=== PATIENT | male | born 1980 | race Caucasian/White ===

== ENCOUNTER 2023-03-29 13:25 | Emergency (ER) | payer SELFPAY ==
[2023-03-29] MEDS ORDERED: NA CHLORIDE 0.9% 1,000 ML ONE (13:51)
[2023-03-29 14:02] LABS: Absolute Lymphocytes (CBC) 2.6 K/uL (0.7-4.9); Hematocrit 49.8 % (39.6-49.0); Lymphocytes % 30.5 % (15.3-44.8); MCV 90.6 fL (80-100); MPV 8.2 fL (7.6-11.3); Platelets 217 thou/uL (152-406); RBC Red Blood Cell Count 5.49 M/uL (4.33-5.43)
--- NOTE | 2023-03-29 15:18 | ER ---
Nurse's Notes [facility] Name: Al Shelton Age: 42 yrs Sex: Male : 1980 Arrival Date: 03/29/2023 Time: 13:25 Bed 15 Private MD: Diagnosis: Hyperglycemia, unspecified;Dehydration Presentation: 03/29 13:39 Chief complaint: Patient states: Pt reports he went to a physical for work today and ss was told that his blood sugar was 412. Pt has no complaints other than fatigue for some time. 13:39 Coronavirus screen: Client denies travel out of the [place] in the last 14 days. Ebola ss Screen: Patient denies exposure to infectious person. Patient denies travel to an Ebola-affected area in the 21 days before illness onset. Initial Sepsis Screen: Does the patient meet any 2 criteria? No. Patient's initial sepsis screen is negative. Does the patient have a suspected source of infection? No. Patient's initial sepsis screen is negative. Risk Assessment: Do you want to hurt yourself or someone else? Patient reports no desire to harm self or others. Onset of symptoms is unknown. 13:39 Method Of Arrival: Ambulatory ss 13:39 Acuity: CARIDAD 3 ss Triage Assessment: 13:45 General: Appears in no apparent distress. comfortable, Behavior is calm, cooperative. ml4 Pain: Denies pain. EENT: No deficits noted. Neuro: No deficits noted. 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 Speech is normal. Cardiovascular: No deficits noted. Capillary refill < 3 seconds. Respiratory: No deficits noted. Airway is patent Respiratory effort is even, unlabored, Respiratory pattern is regular, symmetrical. GI: No deficits noted. Patient currently denies abdominal pain. : No deficits noted. Denies urinary frequency. Derm: No deficits noted. Skin is intact, Skin is dry, Skin is Skin temperature is warm. Historical: - Allergies: 13:47 No Known Allergies; ss - Home Meds: 13:47 None [Active]; ss - PMHx: 13:47 Hypertensive disorder; ss - PSHx: 13:47 Pacemaker; ss - Immunization history:: Client reports receiving the 2nd dose of the Covid vaccine. - Social history:: Smoking status: Patient denies any tobacco usage or history of. - Family history:: not pertinent. - Hospitalizations: : No recent hospitalization is reported. Screenin:47 [facility] ED Fall Risk Assessment (Adult) History of falling in the last 3 months, ml4 including since admission No falls in past 3 months (0 pts) Confusion or Disorientation No (0 pts) Intoxicated or Sedated No (0 pts) Impaired Gait No (0 pts) Mobility Assist Device Used No (0 pt) Altered Elimination No (0 pt) Score/Fall Risk Level 0 - 2 = Low Risk. Abuse screen: Denies threats or abuse. Nutritional screening: No deficits noted. Tuberculosis screening: No symptoms or risk factors identified. Assessment: 13:46 Reassessment: Patient appears in no apparent distress at this time. No changes from ml4 previously documented assessment. Vital Signs: 13:39 BP 138 / 90; Pulse 74; Resp 16; Temp 97.7(TE); Pulse Ox 99% on R/A; Weight 120.2 kg; ss Height 6 ft. 3 in. ; Pain 0/10; 13:46 BP 138 / 90; Pulse 77; Resp 18; Pulse Ox 100% on R/A; Weight 120.2 kg; Height 6 ft. 3 ml4 in. ; Pain 0/10; 13:46 Body Mass Index 33.12 (120.20 kg, 190.5 cm) ml4 13:39 Pain Scale: Adult ss 13:46 Pain Scale: Adult ml4 Milligan Coma Score: 13:46 Eye Response: spontaneous(4). Motor Response: obeys commands(6). Verbal Response: ml4 oriented(5). Total: 15. ED Course: 13:28 Patient arrived in ED. im 13:30 Jeromy Johnson MD is Attending Physician. rn 13:39 BARBIE FariasIII, Giovanny, RN is Primary Nurse. ml4 13:46 Arm band placed on right wrist. ml4 13:47 Triage completed. ss 13:48 No apparent distress. Awaiting lab results. ml4 13:48 No provider procedures requiring assistance completed. Inserted saline lock: 22 gauge ml4 in right hand, using aseptic technique. 15:17 Mitchell Wells MD is Referral Physician. rn 15:38 Patient has correct armband on for positive identification. Provided Education on: N/A. ml4 15:38 IV discontinued, intact, No redness/swelling at site. Pressure dressing applied. ml4 Administered Medications: 13:51 Drug: NS 0.9% IV 1000 ml Route: IV; Rate: 1000 ml; Site: right hand; ml4 Medication: 13:46 VIS not applicable for this client. ml4 Outcome: 13:48 Condition: good ml4 15:17 Discharge ordered by . rn 15:38 Discharged to home ambulatory, with family. ml4 15:38 Discharge instructions given to patient, family, Instructed on discharge instructions, follow up and referral plans. Demonstrated understanding of instructions, follow-up care. 15:50 Patient left the ED. ml4 Signatures: Jeromy Johnson MD MD rn Blanchard, Shelby, RN RN Yanet Kovacs, RNIII, Giovanny, RN RN ml4 Corrections: (The following items were deleted from the chart) 13:47 13:39 Chief complaint: Patient states: Pt reports he went to a physical for work today ss and was told that his blood sugar was 412. Pt has not complaints other than fatigue for some time ss
--- NOTE | 2023-03-29 15:18 | EDPHYS ---
Physician Documentation [facility] Name: Al Shelton Age: 42 yrs Sex: Male : 1980 Arrival Date: 03/29/2023 Time: 13:25 Bed 15 Private MD: ED Physician Jeromy Johnson HPI: 03/29 13:39 This 42 yrs old Male presents to ER via Unassigned with complaints of High Blood Sugar. rn 13:39 The patient or guardian reports hyperglycemia, that was potentially precipitated by no rn particular event. Onset: The symptoms/episode began/occurred at an unknown time. Current symptoms: In the emergency department the patient's symptoms are unchanged from the initial presentation. The patient has not experienced similar symptoms in the past. The patient has not recently seen a physician. Pt reports just had work physical and told "high blood sugar". Read greater than 400 but states just had 20 oz soda and food because he didn't know about blood testing. Reports generalized fatigue, but no fever/vomiting/diarrhea. Has famhx of diabetes but he has never been diagnosed with diabetes. . Historical: - Allergies: 13:47 No Known Allergies; ss - Home Meds: 13:47 None [Active]; ss - PMHx: 13:47 Hypertensive disorder; ss - PSHx: 13:47 Pacemaker; ss - Immunization history:: Client reports receiving the 2nd dose of the Covid vaccine. - Social history:: Smoking status: Patient denies any tobacco usage or history of. - Family history:: not pertinent. - Hospitalizations: : No recent hospitalization is reported. ROS: 13:39 Constitutional: Negative for fever, chills, and weight loss, Neck: Negative for injury, rn pain, and swelling, Cardiovascular: Negative for chest pain, palpitations, and edema, Respiratory: Negative for shortness of breath, cough, wheezing, and pleuritic chest pain, Abdomen/GI: Negative for abdominal pain, nausea, vomiting, diarrhea, and constipation, Back: Negative for injury and pain, : Negative for injury, bleeding, discharge, and swelling, MS/Extremity: Negative for injury and deformity, Skin: Negative for injury, rash, and discoloration, Neuro: Negative for headache, weakness, numbness, tingling, and seizure. Exam: 13:39 Constitutional: This is a well developed, well nourished patient who is awake, alert, rn and in no acute distress. Head/Face: Normocephalic, atraumatic. ENT: dry MM Cardiovascular: Regular rate and rhythm. No pulse deficits. Respiratory: No increased work of breathing, no retractions or nasal flaring. Abdomen/GI: Soft, non-tender Skin: Warm, dry MS/ Extremity: Pulses equal, no cyanosis. Neuro: Awake and alert, GCS 15 Vital Signs: 13:39 BP 138 / 90; Pulse 74; Resp 16; Temp 97.7(TE); Pulse Ox 99% on R/A; Weight 120.2 kg; ss Height 6 ft. 3 in. ; Pain 0/10; 13:46 BP 138 / 90; Pulse 77; Resp 18; Pulse Ox 100% on R/A; Weight 120.2 kg; Height 6 ft. 3 ml4 in. ; Pain 0/10; 13:46 Body Mass Index 33.12 (120.20 kg, 190.5 cm) ml4 13:39 Pain Scale: Adult ss 13:46 Pain Scale: Adult ml4 Rudyard Coma Score: 13:46 Eye Response: spontaneous(4). Motor Response: obeys commands(6). Verbal Response: ml4 oriented(5). Total: 15. MDM: 13:30 Patient medically screened. rn 15:13 Differential diagnosis: diabetes insipidus, hyperglycemia. Data reviewed: vital signs, rn nurses notes, lab test result(s), EKG, and as a result, I will discharge patient. Counseling: I had a detailed discussion with the patient and/or guardian regarding the historical points, exam findings, and any diagnostic results supporting the discharge/admit diagnosis, lab results, the need for outpatient follow up, to return to the emergency department if symptoms worsen or persist or if there are any questions or concerns that arise at home. Response to treatment: the patient's symptoms have markedly improved after treatment, and as a result, I will discharge patient. Special discussion: I discussed with the patient/guardian in detail that at this point there is no indication for admission to the hospital. It is understood, however, that if the symptoms persist or worsen the patient needs to return immediately for re-evaluation. Based on the history and exam findings, there is no indication for further emergent testing or inpatient evaluation. I discussed with the patient/guardian the need to see the escrow secretary for further evaluation of the symptoms. I discussed with the patient/guardian the need to see the primary care provider for further evaluation of the symptoms. ED course: Pt with improving glucose, no formal diagnosis of diabetes, will f/u with pcp for further fasting tests and further management. Also recommend cardiology f/u for pacemaker evaluation, but denies any active chest pain/sob/syncope/dizziness. Has hx of ablation for wpw and states last evaluation of pacemaker was 4 years ago. Return precautions given and understood. . 03/29 13:38 Order name: CBC with Diff; Complete Time: 14:09 rn 03/29 13:38 Order name: Basic Metabolic Panel; Complete Time: 14:41 rn 03/29 13:39 Order name: EKG; Complete Time: 13:39 rn 03/29 13:38 Order name: IV Start; Complete Time: 13:51 rn 03/29 13:39 Order name: EKG - Nurse/Tech; Complete Time: 13:56 rn Administered Medications: 13:51 Drug: NS 0.9% IV 1000 ml Route: IV; Rate: 1000 ml; Site: right hand; ml4 Disposition Summary: 03/29/23 15:17 Discharge Ordered Location: Home rn Problem: new rn Symptoms: have improved rn Condition: Stable rn Diagnosis - Hyperglycemia, unspecified rn - Dehydration rn Followup: rn - With: Mitchell Wells MD - When: As needed - Reason: Recheck today's complaints, Re-evaluation by your physician Discharge Instructions: - Discharge Summary Sheet rn - Dehydration, Adult rn - Hyperglycemia rn - Form - Return To Work ml4 Forms: - Medication Reconciliation Form rn - Thank You Letter rn - Antibiotic furnace firer - Prescription Opioid Use rn - Patient Portal Instructions rn - Leadership Thank You Letter rn Signatures: Dispatcher [employer] Jreomy Sin MD MD rn Blanchard, Shelby, RN RN ss Lembo, RNIII, BARBIE Baltazar RN ml4
[2023-03-29 16:15] VITALS: BP 138/90; TEMP 97.7
[2023-03-29 16:17] VITALS: O2SAT 100
--- NOTE | 2023-04-01 18:07 | EKG ---
Test Date: 2023-03-29 Test Time: 14:01:37 Sink Maker: BCW MEASUREMENT RESULTS: Intervals: Rate: 107 MN: QRSD: 206 QT: 270 QTc: 360 [place]: P: MN: QRS: 25 T: 0 INTERPRETIVE STATEMENTS: V Paced. Electronically Signed On 04-01-23 17:59:51 CDT by Mitchell Wells
== END 2023-03-29 15:50 | disposition home or self-care (01) ==
LOC: ER 13:25
DX: R73.9 Hyperglycemia, unspecified (principal); E86.0 Dehydration
CPT/HCPCS: 36415; 80048; 82947; 85025; 93005; 99284; J7030

== ENCOUNTER → 2023-08-28 | Emergency (ER) | payer SELFPAY ==
--- NOTE | 2023-08-29 01:01 | ER ---
Nurse's Notes [facility] Name: Al Shelton Age: 42 yrs Sex: Male : 1980 Arrival Date: 08/28/2023 Time: 22:39 Bed 8 Private MD: Diagnosis: Local infection of the skin and subcutaneous tissue, unspecified;Pain in left ankle and joints of left foot Presentation: 08/28 23:01 Chief complaint: Patient states: left ankle pain that radiates up seg[place]ia starting 1 week km8 ago after hitting leg on a shopping cart; pt able to walk. Coronavirus screen: Client denies travel out of the [place] in the last 14 days. Ebola Screen: No symptoms or risks identified at this time. Initial Sepsis Screen: Does the patient meet any 2 criteria? HR > 90 bpm. No. Patient's initial sepsis screen is negative. Does the patient have a suspected source of infection? Yes: Skin breakdown/wound. Risk Assessment: Do you want to hurt yourself or someone else? Patient reports no desire to harm self or others. Onset of symptoms was August 21, 2023. 23:01 Method Of Arrival: Ambulatory km8 23:01 Acuity: CARIDAD 3 km8 Triage Assessment: 23:01 General: Appears in no apparent distress. uncomfortable, Behavior is calm, cooperative, km8 appropriate for age. Pain: Complains of pain in left leg Pain currently is 10 out of 10 on a pain scale. EENT: No signs and/or symptoms were reported regarding the EENT system. Neuro: Level of Consciousness is awake, alert, obeys commands, Oriented to person, place, time, situation. Cardiovascular: Denies chest pain, shortness of breath, Capillary refill < 3 seconds Patient's skin is warm and dry. Respiratory: Airway is patent Respiratory effort is even, unlabored, Respiratory pattern is regular, symmetrical. GI: No signs and/or symptoms were reported involving the gastrointestinal system. : No signs and/or symptoms were reported regarding the genitourinary system. Derm: Skin is healthy with good turgor, Skin is dry, Skin is red, Skin temperature is warm. Musculoskeletal: Circulation, motion, and sensation intact. Range of motion: intact in all extremities, Swelling present in left leg. Historical: - Allergies: 23:04 No Known Allergies; km8 - Home Meds: 23:04 None [Active]; km8 - PMHx: 23:04 Hypertensive disorder; 8 - PSHx: 23:04 pacemaker; 8 - Immunization history:: Client reports having NOT received the Covid vaccine. Flu vaccine is not up to date. - Social history:: Smoking status: Patient/guardian denies using tobacco, the patient reports quitting approximately 4 years ago, Patient uses alcohol, but reports only rare drinking. Patient/guardian denies using street drugs. Screenin/18 01:07 [facility] ED Fall Risk Assessment (Adult) History of falling in the last 3 months, jb4 including since admission No falls in past 3 months (0 pts) Confusion or Disorientation No (0 pts). Abuse screen: Denies threats or abuse. Nutritional screening: No deficits noted. Tuberculosis screening: No symptoms or risk factors identified. Assessment: 00:34 Reassessment: Patient appears in no apparent distress at this time. Patient and/or jb4 family updated on plan of care and expected duration. Pain level reassessed. Patient is alert, oriented x 3, equal unlabored respirations, skin warm/dry/pink. Vital Signs: 08/28 23:01 BP 161 / 93; Pulse 118; Resp 16; Temp 98(O); Pulse Ox 99% on R/A; Weight 121.56 kg (R); [facility] Height 6 ft. 3 in. (R); Pain 10/; 08/29 00:34 BP 143 / 76; Pulse 102; Resp 16; Pulse Ox 95% on R/A; jb4 08/28 23:01 Body Mass Index 33.50 (121.56 kg, 190.5 cm) [facility] 08/28 23:01 Pain Scale: Adult [facility] ED Course: 08/28 22:54 Patient arrived in ED. gm2 22:55 Ronda Nails FNP-C [facility] kb 22:55 Etienne Ventura MD is Attending Physician. kb 23:01 Arm band placed on right wrist. 8 23:03 Triage completed. km8 23:32 Tib Fib Left XRAY In Process Unspecified. EDMS 23:32 Foot Left 2 View XRAY In Process Unspecified. EDMS 23:47 US Extremity Venous Unilateral Ltd In Process Unspecified. EDMS 08/29 01:07 Patient has correct armband on for positive identification. Bed in low position. Call jb4 light in reach. Side rails up X 1. 01:07 No provider procedures requiring assistance completed. Patient did not have IV access jb4 during this emergency room visit. Administered Medications: No medications were administered Outcome: 01:00 Discharge ordered by . azael 01:07 Discharged to home ambulatory, jb4 01:07 Condition: stable 01:07 Discharge instructions given to patient, Instructed on discharge instructions, follow up and referral plans. no drinking with medication, medication usage, Demonstrated understanding of instructions, follow-up care, medications, Prescriptions given X 2, 01:08 Patient left the ED. jb4 Signatures: Dispatcher [employer] EDMS Ronda Nails, RHODAC ORTHOTIST OR PROSTHETIST-Aleksandar Zepeda, RN RN jb4 Maeve Holgiun [facility] Lety Corbin, BARBIE RN km8 Corrections: (The following items were deleted from the chart) 08/28 23:07 23:01 BP 161 / 93; Pulse 118bpm; Resp 16bpm; Pulse Ox 99% RA; 121.56 kg Reported; km8 Height 6 ft. 3 in. Reported; BMI: 33.5; Pain 10/10, Adult; km8
--- NOTE | 2023-08-29 01:01 | EDPHYS ---
Physician Documentation [facility] Name: Al Shelton Age: 42 yrs Sex: Male : 1980 Arrival Date: 08/28/2023 Time: 22:39 Bed 8 Private MD: ED Physician Etienne Ventura HPI: 08/29 00:52 This 42 yrs old Male presents to ER via Ambulatory with complaints of Ankle Injury, kb Ankle Swelling. 00:52 Patient is a 42-year-old male with a history of hypertension who presents for pain and kb swelling to left ankle that radiates up left seg[place]ia. Denies injury or trauma. Denies fever.. Historical: - Allergies: 08/28 23:04 No Known Allergies; km8 - Home Meds: 23:04 None [Active]; km8 - PMHx: 23:04 Hypertensive disorder; km8 - PSHx: 23:04 pacemaker; km8 - Immunization history:: Client reports having NOT received the Covid vaccine. Flu vaccine is not up to date. - Social history:: Smoking status: Patient/guardian denies using tobacco, the patient reports quitting approximately 4 years ago, Patient uses alcohol, but reports only rare drinking. Patient/guardian denies using street drugs. ROS: 08/29 00:52 Constitutional: Negative for fever, chills, and weight loss, kb MS/extremity: Positive for pain, swelling, tenderness, of the left [place], anterior aspect of left ankle and dorsum of left foot, All other systems are negative, Exam: 00:59 Constitutional: This is a well developed, well nourished patient who is awake, alert, kb and in no acute distress. Head/Face: Normocephalic, atraumatic. ENT: Moist Mucous membranes Cardiovascular: Regular rate Respiratory: Respirations even and unlabored. No increased work of breathing. Talking in full sentences Skin: Warm, dry with normal turgor. Normal color. Neuro: Awake and alert, GCS 15, oriented to person, place, time, and situation. Moves all extremities. Normal gait. 00:59 Musculoskeletal/extremity: Extremities: grossly normal except: noted in the dorsum of left foot and anterior aspect of left ankle: abrasion, pain, swelling, tenderness, slight erythema, ROM: no acute changes, intact in all extremities, Circulation is intact in all extremities. Sensation intact. Weight bearing: able to fully bear weight, Vital Signs: 08/28 23:01 BP 161 / 93; Pulse 118; Resp 16; Temp 98(O); Pulse Ox 99% on R/A; Weight 121.56 kg (R); km8 Height 6 ft. 3 in. (R); Pain 10/10; 08/29 00:34 BP 143 / 76; Pulse 102; Resp 16; Pulse Ox 95% on R/A; jb4 08/28 23:01 Body Mass Index 33.50 (121.56 kg, 190.5 cm) [facility] 08/28 23:01 Pain Scale: Adult [facility] MDM: 08/28 22:56 Patient medically screened. kb 08/29 01:00 Differential diagnosis: fracture, sprain, cellulitis, dvt. Data reviewed: vital signs, kb nurses notes. Counseling: I had a detailed discussion with the patient and/or guardian regarding the historical points, exam findings, and any diagnostic results supporting the discharge/admit diagnosis, radiology results, the need for outpatient follow up, a family practitioner, to return to the emergency department if symptoms worsen or persist or if there are any questions or concerns that arise at home. 08/28 23:07 Order name: US Extremity Venous Unilateral Ltd kb 08/28 23:07 Order name: Tib Fib Left XRAY kb 08/28 23:07 Order name: Foot Left 2 View XRAY kb Administered Medications: No medications were administered Disposition Summary: 08/29/23 01:00 Discharge Ordered Notes: Location: Home kb Condition: Stable kb Diagnosis - Local infection of the skin and subcutaneous tissue, unspecified kb - Pain in left ankle and joints of left foot kb Followup: kb - With: Emergency Department - When: As needed - Reason: Worsening of condition Followup: kb - With: Private Physician - When: 2 - 3 days - Reason: Recheck today's complaints, Continuance of care, Re-evaluation by your physician Discharge Instructions: - Discharge Summary Sheet kb - Musculoskeletal Pain kb - Wound Infection, [id number] kb Forms: - Medication Reconciliation Form kb - Thank You Letter kb - Antibiotic Education kb - Prescription Opioid Use kb - Patient Portal Instructions kb - Leadership Thank You Letter kb Prescriptions: - Cephalexin 500 mg Oral Capsule - take 1 capsule ORAL route every 8 hours for 10 days; 30 capsule; Refills: 0, kb Product Selection Permitted - Diclofenac Sodium 75 mg Oral tablet, delayed release (enteric coated) - take 1 tablet ORAL route 2 times per day As needed; 30 tablet; Refills: 0, kb Product Selection Permitted Signatures: Dispatcher [employer] Ronda Chinchilla, DEE-C DEE-Lety Dixon, RN RN km8
[2023-08-29 06:50] VITALS: BP 143/76; TEMP 98; O2SAT 95
--- NOTE | 2023-08-29 15:11 | RAD REPORT ---
EXAM DESCRIPTION: RAD - Tib Fib Left - 08/28/2023 11:30 pm CLINICAL HISTORY: PAIN COMPARISON: None. TECHNIQUE: XR TIBIA FIBULA LEFT 08/28/2023 11:07 PM BLIND SLAT STAPLING MACHINE OPERATOR FINDINGS: There is no fracture. Joint spaces are preserved. There is mild soft tissue swelling ove rlying the anterior ankle. IMPRESSION: No acute osseous findings. Electronically signed by: Chuy Acosta MD 08/28/2023 11:44 PM BLIND SLAT STAPLING MACHINE OPERATOR Due to temporary technical issues with the PACS/Fluency reporting system, reports are being signed by the in house radiologist without review as a courtesy to ensure prompt reporting. The interpreting r adiologist is fully responsible for the content of the report.
--- NOTE | 2023-08-29 15:28 | RAD REPORT ---
EXAM DESCRIPTION: US - Extremity Venous Uni Ltd - 08/28/2023 11:45 pm CLINICAL HISTORY: PAIN TECHNIQUE: Real-time Duplex ultrasound of the left lower extremity veins with 2-D kaufman scale, color Doppler flow, and spectral waveform analysis. COMPARISON: None available for comparison. FINDINGS: Left deep veins: The common femoral, femoral, popliteal and visualized calf veins are aguilar nt without thrombus. Normal compressibility, augmentation response, and Doppler waveforms. Left superficial veins: Visualized saphenofemoral junction is patent without thrombus. IMPRESSION: No evidence of venous thrombosis in the left lower extremity. Electronically signed by: Vincent Núñez MD 08/28/2023 11:55 PM BAKELITE MOLDER Due to temporary technical issues with the PACS/Fluency reporting system, reports are being signed by the in house radiologist without review as a courtesy to ensure prompt reporting. The interpreting r adiologist is fully responsible for the content of the report.
--- NOTE | 2023-08-29 15:37 | RAD REPORT ---
EXAM DESCRIPTION: RAD - Foot Left 2 View - 08/28/2023 11:31 pm CLINICAL HISTORY: PAIN COMPARISON: None. TECHNIQUE: XR FOOT 1-2 VIEWS LEFT 08/28/2023 11:07 PM OPERATIONS SPECIALIST FINDINGS: There is no fracture. Joint spaces are preserved. Soft tissues are unremarkable. IMPRESSION: No acute osseous findings. Electronically signed by: Chuy Acosta MD 08/28/2023 11:42 PM OPERATIONS SPECIALIST Due to temporary technical issues with the PACS/Fluency reporting system, reports are being signed by the in house radiologist without review as a courtesy to ensure prompt reporting. The interpreting r adiologist is fully responsible for the content of the report.
== END ==
LOC: ER 22:39
DX: L08.9 Local infection of the skin and subcutaneous tissue, unspecified (principal)
CPT/HCPCS: 93971

== ENCOUNTER → 2023-08-30 | Emergency (ER) | payer SELFPAY ==
[~2023-08-30] MED LIST: KETOROLAC 30 MG/ML INJ ONE
--- NOTE | 2023-08-30 19:08 | ER ---
Nurse's Notes [facility] Name: Al Shelton Age: 42 yrs Sex: Male : 1980 Arrival Date: 08/30/2023 Time: 17:46 Bed IW10 Private MD: Diagnosis: Cellulitis of left lower limb Presentation: 08/30 18:39 Chief complaint: Patient states: Pt requesting that someone change his pain medication ap3 for a swollen ankle. US and xray done Wed in this ER. Wants better pain medication. Coronavirus screen: Vaccine status: Patient reports being unvaccinated. Client denies travel out of the [place] in the last 14 days. Ebola Screen: Patient negative for fever greater than or equal to 101.5 degrees Fahrenheit, and additional compatible Ebola Virus Disease symptoms Patient denies exposure to infectious person. Patient denies travel to an Ebola-affected area in the 21 days before illness onset. Initial Sepsis Screen: Does the patient meet any 2 criteria? No. Patient's initial sepsis screen is negative. Does the patient have a suspected source of infection? No. Patient's initial sepsis screen is negative. Risk Assessment: Do you want to hurt yourself or someone else? Patient reports no desire to harm self or others. Onset of symptoms is unknown. 18:39 Method Of Arrival: Ambulatory ap3 18:39 Acuity: CARIDAD 5 ap3 Triage Assessment: 18:43 General: Appears in no apparent distress. Behavior is calm, cooperative. Pain: ap3 Complains of pain in left lateral ankle and left medial ankle. Historical: - Allergies: 18:43 No Known Allergies; ap3 - Home Meds: 18:43 None [Active]; ap3 - PMHx: 18:43 Hypertensive disorder; ap3 - PSHx: 18:43 pacemaker; ap3 - Immunization history:: Adult Immunizations up to date, Client reports having NOT received the Covid vaccine. Last tetanus immunization: up to date. - Social history:: Smoking status: Patient denies any tobacco usage or history of. unknown. Screenin:46 [facility] ED Fall Risk Assessment (Adult) History of falling in the last 3 months, cp4 including since admission No falls in past 3 months (0 pts) Confusion or Disorientation No (0 pts) Intoxicated or Sedated No (0 pts) Impaired Gait No (0 pts) Mobility Assist Device Used No (0 pt) Altered Elimination No (0 pt) Score/Fall Risk Level 0 - 2 = Low Risk Oriented to surroundings, Maintained a safe environment, Educated pt \T\ family on fall prevention, incl call for assistance when getting out of bed, Assessed \T\ reinforced patient's understanding of fall precautions, Provided non-skid footwear, Hourly rounding (assess needs \T\ fall precautionary measures) done. Abuse screen: Denies threats or abuse. Nutritional screening: No deficits noted. Tuberculosis screening: No symptoms or risk factors identified. Vital Signs: 18:39 BP 127 / 85; Pulse 98; Resp 20; Temp 98; Pulse Ox 100% ; Weight 121.34 kg; Height 6 ft. ap3 3 in. ; 18:39 Body Mass Index 33.43 (121.34 kg, 190.5 cm) ap3 ED Course: 17:55 Patient arrived in ED. mg5 18:03 [facility] cp 18:03 Etienne Ventura MD is Attending Physician. cp 18:43 Triage completed. ap3 18:43 Arm band placed on right wrist. ap3 19:46 Fall risk band placed. Provided Education on: cellulitis. cp4 19:46 No provider procedures requiring assistance completed. Patient did not have IV access cp4 during this emergency room visit. Administered Medications: 19:12 Drug: Ketorolac IM 30 mg IM once Route: IM; Site: right deltoid; ap3 19:32 Follow up: Response: No adverse reaction cp4 Medication: 19:46 VIS not applicable for this client. cp4 Outcome: 19:07 Discharge ordered by . cp 19:46 Discharged to home ambulatory, cp4 19:46 Condition: stable 19:46 Discharge instructions given to patient, Instructed on discharge instructions, follow up and referral plans. medication usage, Demonstrated understanding of instructions, follow-up care, medications, Prescriptions given X 2, 19:50 Patient left the ED. cp4 Signatures: Rich Barbour PA PA cp Prokisch, Amanda, RN RN ap3 Megan Sorensen mg5 Armida Sharp cp4
--- NOTE | 2023-08-30 19:08 | EDPHYS ---
Physician Documentation [facility] Name: Al Shelton Age: 42 yrs Sex: Male : 1980 Arrival Date: 08/30/2023 Time: 17:46 Bed IW10 Private MD: ED Physician Etienne Ventura HPI: 08/30 19:00 This 42 yrs old Male presents to ER via Ambulatory with complaints of Leg Pain. cp 19:00 The patient presents with pain, that is acute. The complaints affect the left lower leg cp and left ankle. 19:00 Patient returns to Ed after being seen 2 days ago for left ankle pain and swelling. cp Reports increased swelling and pain today. Xrays and US performed at previous visit negative. Reports prescribed diclofenac not helping with pain. Historical: - Allergies: 18:43 No Known Allergies; ap3 - Home Meds: 18:43 None [Active]; ap3 - PMHx: 18:43 Hypertensive disorder; ap3 - PSHx: 18:43 pacemaker; ap3 - Immunization history:: Adult Immunizations up to date, Client reports having NOT received the Covid vaccine. Last tetanus immunization: up to date. - Social history:: Smoking status: Patient denies any tobacco usage or history of. unknown. ROS: 19:05 Constitutional: Negative for body aches, chills, fever, poor PO intake, cp 19:05 Eyes: Negative for injury, pain, redness, and discharge, cp 19:05 Cardiovascular: Negative for chest pain, palpitations, 19:05 Respiratory: Negative for cough, shortness of breath, wheezing, 19:05 Abdomen/GI: Negative for abdominal pain, nausea, vomiting, and diarrhea, 19:05 Back: Negative for pain at rest, pain with movement, 19:05 MS/extremity: Positive for pain, swelling, tenderness, of the left lower leg and left ankle, 19:05 All other systems are negative, Exam: 19:06 Head/Face: Normocephalic, atraumatic. cp 19:06 Constitutional: The patient appears in no acute distress, alert, awake, non-toxic, well developed, well nourished, 19:06 Cardiovascular: Rate: normal, 19:06 Respiratory: the patient does not display signs of respiratory distress, Respirations: normal, no use of accessory muscles, no retractions, labored breathing, is not present, 19:06 Musculoskeletal/extremity: Extremities: grossly normal except: noted in the left lower leg: superficial wound to anterior aspect of lower leg with erythema, mild swelling noted extending to ankle, Perfusion: the extremity is normally perfused throughout, Sensation intact. 19:06 Skin: cellulitis, that is mild, irregular, on the left lower leg, cp Vital Signs: 18:39 BP 127 / 85; Pulse 98; Resp 20; Temp 98; Pulse Ox 100% ; Weight 121.34 kg; Height 6 ft. ap3 3 in. ; 18:39 Body Mass Index 33.43 (121.34 kg, 190.5 cm) ap3 MDM: 18:50 Patient medically screened. cp 19:07 Data reviewed: vital signs, nurses notes, old medical records, xray and US reports from cp previous visit and as a result, I will discharge patient. 19:07 Differential diagnosis: closed fracture, cellulitis, abscess, dependent edema. I cp considered the following discharge prescriptions or medication management in the emergency department Medications were administered in the Emergency Department. See MAR. Counseling: I had a detailed discussion with the patient and/or guardian regarding the historical points, exam findings, and any diagnostic results supporting the discharge/admit diagnosis, the need for outpatient follow up, a family practitioner, to return to the emergency department if symptoms worsen or persist or if there are any questions or concerns that arise at home. Response to treatment: the patient's symptoms have mildly improved after treatment, and as a result, I will discharge patient. Administered Medications: 19:12 Drug: Ketorolac IM 30 mg IM once Route: IM; Site: right deltoid; ap3 19:32 Follow up: Response: No adverse reaction cp4 Disposition Summary: 08/30/23 19:07 Discharge Ordered Notes: Location: Home cp Problem: an ongoing problem cp Symptoms: have worsened cp Condition: Stable cp Diagnosis - Cellulitis of left lower limb cp Followup: cp - With: Private Physician - When: 2 - 3 days - Reason: Worsening of condition Discharge Instructions: - Discharge Summary Sheet cp - Cellulitis, Adult cp - Form - Excuse from Work, School, or Physical Activity cp Forms: - Medication Reconciliation Form cp - Thank You Letter cp - Antibiotic Education cp - Prescription Opioid Use cp - Patient Portal Instructions cp - Leadership Thank You Letter cp Prescriptions: - Bactrim DS 800-160 mg Oral Tablet - take 1 tablet ORAL route every 12 hours for 10 days; 20 tablet; Refills: 0, cp Product Selection Permitted - methocarbamol 750 mg Oral tablet - take 1 tablet ORAL route 3 times per day; 20 tablet; Refills: 0, Product cp Selection Permitted Addendum: 09/02/2023 10:53 I was immediately available for consultation during this patient's visit. I did not e c2 personally see the patient or discuss the patient with the DIMITRI. . Signatures: Rich Barbour PA PA cp Prokisch, Amanda, RN RN ap3 Etienne Ventura MD MD ec2 Armida Sharp cp4
[2023-08-30 23:17] VITALS: BP 127/85; TEMP 98; O2SAT 100
== END ==
LOC: ER 17:46
DX: L03.116 Cellulitis of left lower limb (principal); I10 Essential (primary) hypertension; Z95.0 Presence of cardiac pacemaker
CPT/HCPCS: 96372; 99284

== ENCOUNTER → 2023-09-03 | Emergency (ER) | payer SELFPAY ==
[~2023-09-03] MED LIST changes: +ACETAMINOPHEN 325 MG TABLET PO PRN; +CEFEPIME 2 GM in NA CHLORIDE 0.9% 100 ML IV SCH; +ENOXAPARIN 40 MG/0.4 ML SQ SCH; +INSULIN GLARGINE 100 UNIT/ML SQ SCH; +INSULIN REGULAR (HUMAN) 100 UNIT/ML ONE; +INSULIN REGULAR (HUMAN) 100 UNIT/ML SQ SCH; +MORPHINE 4 MG/ML SYR ONE; +NA CHLORIDE 0.9% 1,000 ML IV SCH; +NA CHLORIDE 0.9% 1,000 ML ONE; +NA CHLORIDE 0.9% 100 ML ONE; +NA CHLORIDE 0.9% 250 ML ONE; +ONDANSETRON 4 MG/2 ML VIAL IV PRN; +ONDANSETRON 4 MG/2 ML VIAL ONE; +Oxycodone HCl/Acetaminophen 5/325 MG TAB PO PRN; +PIPERACIL/TAZO 3.375 GM VIAL IV ONE; +VANCOMYCIN 1 GM in NA CHLORIDE 0.9% 250 ML IVPB ONE; +VANCOMYCIN 1 GM in NA CHLORIDE 0.9% 250 ML IVPB SCH; +VANCOMYCIN 1 GM/VIAL ONE
--- NOTE | 2023-09-03 22:30 | RAD REPORT ---
EXAM DESCRIPTION: US - Extremity Venous Uni Ltd - 09/03/2023 10:21 pm CLINICAL HISTORY: left leg pain Leg swelling and edema. COMPARISON: Extremity Venous Uni Ltd dated 08/28/2023 FINDINGS: Left lower extremity venous system was interrogated with Doppler technique. Normal flow, c ompressibility and augmentation was noted. There is no DVT present.Complex collection left lateral ca lf area of pain is nonspecific. This could be a hematoma or related to muscle tearing. Nonemergent MR I followup would be suggested. IMPRESSION: No evidence of left lower extremity deep venous thrombosis.
[2023-09-03 22:59] LABS: Protime INR 1.41
[2023-09-03 23:01] LABS: Absolute Lymphocytes (CBC) 1.4 K/uL (0.7-4.9); Hematocrit 45.3 % (39.6-49.0); Lymphocytes % 12.5 % (15.3-44.8); MCV 90.2 fL (80-100); MPV 7.5 fL (7.6-11.3); Platelets 313 thou/uL (152-406); RBC Red Blood Cell Count 5.02 M/uL (4.33-5.43)
[2023-09-03 23:17] LABS: Albumin 2.7 g/dL (3.4-5.0); Bilirubin Direct 0.2 mg/dL (0-0.2); Bilirubin Indirect, Calculated 0.5 mg/dL (0.2-0.8); Bilirubin Total 0.7 mg/dL (0.2-1.0); Potassium 3.8 mEq/L (3.5-5.1); Protein, Total 7.8 g/dL (6.4-8.2)
--- NOTE | 2023-09-04 04:35 | EDPHYS ---
Physician Documentation [facility] Name: Al Shelton Age: 42 yrs Sex: Male : 1980 Arrival Date: 09/03/2023 Time: 21:36 Bed 20 Private MD: ED Physician Alonzo Ratliff HPI: 09/03 21:43 This 42 yrs old Male presents to ER via Unassigned with complaints of Leg sp4 Pain, Leg Swelling. 21:53 Prescriptions on 08/30/2023 - Bactrim DS 800-160 mg Oral Tablet take 1 tablet ORAL sp4 route every 12 hours for 10 days; 20 tablet; Refills: 0; Product Selection Permitted methocarbamol 750 mg Oral tablet take 1 tablet ORAL route 3 times per day; 20 tablet; Refills: 0; Product Selection Permitted . 09/04 02:10 42-year-old male comes in with left lower extremity pain starting on 08/27/2023 of this sp4 month. Patient states left lower extremity pain has intensified despite use of [id number] counter medications and prescribed p.o. antibiotics. Patient states pain is increasing and there is swelling left lateral lower extremity. . Historical: - Allergies: 09/03 21:48 NKDA; jj7 - PMHx: 21:48 Hypertensive disorder; jj7 - PSHx: 21:48 pacemaker; jj7 - Immunization history:: Client reports having NOT received the Covid vaccine. Flu vaccine is not up to date. - Social history:: Smoking status: Patient denies any tobacco usage or history of. Patient/guardian denies using alcohol, street drugs. - Family history:: not pertinent. ROS: 09/04 02:10 Constitutional: Negative for fever, chills, and weight loss, MS/Extremity: Positive sp4 left lower extremity pain and swelling All other systems are negative, Exam: 02:10 Constitutional: This is a well developed, well nourished patient who is awake, alert, sp4 and in no acute distress. Head/Face: Normocephalic, atraumatic. Eyes: Pupils equal round and reactive to light, extra-ocular motions intact. Lids and lashes normal. Conjunctiva and sclera are not injected. Cornea within normal limits. Periorbital areas with no swelling, redness, or edema. ENT: Nares patent. No nasal discharge, no septal abnormalities noted. Tympanic membranes are normal and external auditory canals are clear. Oropharynx with no redness, swelling, or masses, exudates, or evidence of obstruction, uvula midline. Mucous membranes moist. Neck: Trachea midline, no thyromegaly or masses palpated, and no cervical lymphadenopathy. Supple, full range of motion without nuchal rigidity, or vertebral point tenderness. Chest/axilla: Normal chest wall appearance and motion. Nontender with no deformity. No lesions are appreciated. Cardiovascular: Regular rate and rhythm with a normal S1 and S2. No gallops, murmurs, or rubs. Normal PMI, no JVD. No pulse deficits. Respiratory: Lungs have equal breath sounds bilaterally, clear to auscultation and percussion. No rales, rhonchi or wheezes noted. No increased work of breathing, no retractions or nasal flaring. Abdomen/GI: Soft, non-tender, with normal bowel sounds. No distension or tympany. No guarding or rebound. No evidence of tenderness throughout. Back: No spinal tenderness. No costovertebral tenderness. Skin: Warm, dry with normal turgor. Normal color with no rashes, no lesions, and no evidence of cellulitis. MS/ Extremity: Pulses equal, no cyanosis. Neurovascular intact. Full, normal range of motion. Left lateral lower extremity pain and swelling and tenderness. No sign of significant cellulitis Neuro: Awake and alert, GCS 15, oriented to person, place, time, and situation. Cranial nerves II-XII grossly intact. Motor strength 5/5 in all extremities. Sensory grossly intact. Psych: Awake, alert, with orientation to person, place and time. Behavior, mood, and affect are within normal limits Vital Signs: 09/03 21:43 BP 147 / 102; Pulse 108; Resp 17; Temp 98.3; Pulse Ox 100% ; Weight 121.11 kg; Height 6 jj7 ft. 3 in. ; Pain 10/10; 22:45 BP 138 / 77; Pulse 90; Resp 20 S; Pulse Ox 98% on R/A; ha1 23:15 BP 113 / 68; Pulse 82; Resp 17 S; Pulse Ox 97% on R/A; ha1 09/04 00:00 BP 116 / 69; Pulse 85; Resp 17 S; Pulse Ox 98% on R/A; ha1 01:00 BP 118 / 71; Pulse 82; Resp 17 S; Pulse Ox 97% on R/A; ha1 02:00 BP 117 / 67; Pulse 81; Resp 17 S; Pulse Ox 97% on R/A; ha1 09/03 21:43 Body Mass Index 33.37 (121.11 kg, 190.5 cm) [facility] 09/03 21:43 Pain Scale: Adult [facility] [place] Coma Score: 02:10 Eye Response: spontaneous(4). Motor Response: obeys commands(6). Verbal Response: sp4 oriented(5). Total: 15. MDM: 09/03 21:44 Patient medically screened. sp4 09/04 02:00 ED course: IMPRESSION: 1. Unremarkable angiographic appearance of the abdominal aorta, sp4 pelvic and lower extremity branches through the popliteal trifurcation within the exam limitation of suboptimal contrast bolus timing. 2. Complex, likely multiloculated fluid collection (abscess) measuring up to 16.1 cm predominately within the anterior compartment and minimally extending to the deep posterior compartment of the left lower leg as described above. Associated inflammation of surrounding soft tissues. 3. No acute abdominopelvic finding. Electronically signed by: Carter Shaw MD 09/04/2023 01:09 AM. 02:10 Differential diagnosis: dislocation, open fracture, closed fracture, contusion, sp4 abrasion, tendonitis. Data reviewed: vital signs, nurses notes, lab test result(s), radiologic studies, CT scan, ultrasound. Consideration of Admission/Observation Patient was admitted/placed on observation. Escalation of care including admission/observation considered. 02:10 ED course: CT report - FINDINGS: SUPPORTIVE DEVICES: None. LOWER CHEST: Lung bases are sp4 clear. Biventricular cardiac leads are present within the normal sized heart. VASCULAR: Arteries: Assessment is limited by suboptimal contrast bolus timing, which appears late arterial within the size and mixed venous within the lower legs. Minimal aortoiliac atherosclerosis with normal caliber. Contrast opacifies through the popliteal artery bifurcation bilaterally without evidence of aneurysm/pseudoaneurysm, dissection, or occlusion. Veins: Suboptimally assessed. The portal vein is patent. Systemic veins are unremarkable. ABDOMEN AND PELVIS: Liver: Diffuse hypoenhancement relative to the spleen. Gallbladder and bile ducts: Normal. Pancreas: Normal. Spleen: Normal. Adrenal glands: Normal. Kidneys and ureters: Normal. Bladder: Nondistended without evident abnormality. Reproductive organs: Unremarkable. GI tract: Normal caliber without wall thickening. No evidence of appendicitis. Lymph nodes: No evident adenopathy. Peritoneum: No evidence of ascites, fluid collection, or free air. Abdominal wall: No significant hernia. LOWER EXTREMITIES: Bones: Intact. Normal osseous mineralization. Joints: No dislocation or evident joint effusion. No significant degenerative change of the hips, knees, or ankles. Mild fibrocystic change of the femoral head/neck junctions. Muscle/tendon/soft tissues: Elongated, encapsulated mixed density fluid collection mostly within the anterior compartment of the left lower leg measures approximately 2.3 x 2.4 x 16.1 cm TR byAP by CC, appearing predominantly within the extensor hallucis and digitorum longus muscles with mild extension through the syndesmosis into the flexure hallucis longus muscle (coronal image 92/137). Overlying superficial soft tissue swelling and skin thickening. No evidence of deep fascial edema or soft tissue gas.. ED course: EXAM DESCRIPTION: US - Extremity Venous Uni Ltd - 09/03/2023 10:21 pm CLINICAL HISTORY: left leg pain Leg swelling and edema. COMPARISON: Extremity Venous Uni Ltd dated 08/28/2023 FINDINGS: Left lower extremity venous system was interrogated with Doppler technique. Normal flow, compressibility and augmentation was noted. There is no DVT present.Complex collection left lateral calf area of pain is nonspecific. This could be a hematoma or related to muscle tearing. Nonemergent MRI followup would be suggested. IMPRESSION: No evidence of left lower extremity deep venous thrombosis. . 02:15 ED course: We have discussed patient's abscess with general surgeon. General surgeon sp4 states that patient may be admitted to hospitalist and he will be assessed in the morning for incision and drainage of deep muscular access of left lower extremity. At this time patient states he needs to go home to bring his home to his kids. He cannot get admitted at this time but he can return in 2 to 3 hours to check back into the emergency room to get hospital admission and consultation with general surgeon. This time will provide informed discharge. Will await for patient to return. . 09/03 22:02 Order name: Basic Metabolic Panel; Complete Time: 23:39 sp4 09/03 22:02 Order name: CBC with Diff; Complete Time: 23:39 sp4 09/03 22:02 Order name: LFT's; Complete Time: 23:39 sp4 09/03 22:02 Order name: NT PRO-BNP; Complete Time: 23:39 sp4 09/03 22:02 Order name: PT-INR; Complete Time: 23:39 sp4 09/03 22:02 Order name: CK; Complete Time: 23:39 sp4 09/03 22:03 Order name: Extremity Venous Uni Ltd US; Complete Time: 23:39 sp4 09/03 22:04 Order name: CT Abdomen - Angio sp4 09/03 23:56 Order name: Lower Ext Angio EDMS 09/03 22:02 Order name: IV Saline Lock; Complete Time: 22:43 sp4 09/03 22:02 Order name: Labs collected and sent; Complete Time: 22:43 sp4 09/03 22:02 Order name: O2 Per Protocol; Complete Time: 22:43 sp4 09/03 22:02 Order name: O2 Sat Monitoring; Complete Time: 22:43 sp4 Administered Medications: 09/03 22:35 Drug: Ondansetron IVP 4 mg IVP once; over 2 minutes Route: IVP; Site: left forearm; ha1 23:00 Follow up: Response: No adverse reaction; Marked relief of symptoms ha1 22:37 Drug: morphine IVP or IV 4 mg IVP once over 4 mins Route: IVP; Infused Over: 4 mins; ha1 Site: left forearm; 23:00 Follow up: Response: No adverse reaction; Pain is decreased; RASS: Alert and Calm (0) ha1 22:39 Drug: Ketorolac IVP 30 mg IVP once Route: IVP; Site: left forearm; ha1 23:00 Follow up: Response: No adverse reaction; Marked relief of symptoms ha1 22:40 Drug: NS 0.9% IV 1000 ml IV at 1 bolus Per protocol; 1000 mL bolus Route: IV; Rate: 1 ha1 bolus; Site: left forearm; 23:34 Follow up: Response: No adverse reaction ha1 23:54 Drug: Insulin Regular Human IVP 5 units IVP once {Co-Signature: bp (Mazin Perez ha1 RN).} Route: IVP; Site: left forearm; 09/04 01:00 Follow up: Response: No adverse reaction; Marked relief of symptoms ha1 02:25 Not Given (Patient Refused): vancomycin1 grams IVPB once over 2 hrs ha1 02:25 Not Given (Patient Refused): piperacillin-tazobactam3.375 grams IVPB once over 60 mins; ha1 (mix in NS 100 mL) Disposition Summary: 09/04/23 02:15 Discharge Ordered Notes: Return to ER PRO for hospital admission Location: Home sp4 Problem: new sp4 Symptoms: have improved sp4 Condition: Stable sp4 Diagnosis - Left lower extremity muscular abscess, diabetes, hypertension, left lower extremity sp4 pain Followup: sp4 - With: Cas Ma MD - When: 2 - 3 days - Reason: Recheck today's complaints Discharge Instructions: - Discharge Summary Sheet sp4 - Skin Abscess, [id number] sp4 Forms: - SBAR form ha1 - Patient Portal Instructions sp4 Signatures: Dispatcher [employer] Tara Sharpe RN RN ha1 Kit Lopez RN RN jj7 Alonzo Ratliff MD MD sp4 Mazin Perez RN bp
--- NOTE | 2023-09-04 04:35 | ER ---
Nurse's Notes [facility] Name: Al Shelton Age: 42 yrs Sex: Male : 1980 Arrival Date: 09/03/2023 Time: 21:36 Bed 20 Private MD: Diagnosis: Left lower extremity muscular abscess, diabetes, hypertension, left lower extremity pain Presentation: 09/03 21:43 Chief complaint: Patient states: PAIN AND SWELLING IN LEFT LEG X2 WKS. WAS SEEN IN THIS [facility] ER 2 TIMES AND DX WITH CELLULITIS. STATES IT'S NOT GETTING BETTER. Coronavirus screen: At this time, the client does not indicate any symptoms associated with coronavirus-19. Ebola Screen: No symptoms or risks identified at this time. Initial Sepsis Screen: Does the patient meet any 2 criteria? HR > 90 bpm. Yes Does the patient have a suspected source of infection? Yes: Skin breakdown/wound. Risk Assessment: Do you want to hurt yourself or someone else? Patient reports no desire to harm self or others. 21:43 Method Of Arrival: Ambulatory [facility] 21:43 Acuity: CARIDAD 3 [facility] Triage Assessment: 21:48 General: Appears in no apparent distress. uncomfortable, Behavior is calm, cooperative, jj7 appropriate for age. Pain: Complains of pain in left leg. Musculoskeletal: Reports pain in left leg. Historical: - Allergies: 21:48 NKDA; jj7 - PMHx: 21:48 Hypertensive disorder; jj7 - PSHx: 21:48 pacemaker; jj7 - Immunization history:: Client reports having NOT received the Covid vaccine. Flu vaccine is not up to date. - Social history:: Smoking status: Patient denies any tobacco usage or history of. Patient/guardian denies using alcohol, street drugs. - Family history:: not pertinent. Screenin:51 [facility] ED Fall Risk Assessment (Adult) History of falling in the last 3 months, [facility] including since admission No falls in past 3 months (0 pts) Confusion or Disorientation No (0 pts) Intoxicated or Sedated No (0 pts) Impaired Gait No (0 pts) Mobility Assist Device Used No (0 pt) Altered Elimination No (0 pt) Score/Fall Risk Level 0 - 2 = Low Risk Oriented to surroundings, Maintained a safe environment, Educated pt \\T\\ family on fall prevention, incl call for assistance when getting out of bed. Abuse screen: Denies threats or abuse. Nutritional screening: No deficits noted. Tuberculosis screening: No symptoms or risk factors identified. Assessment: 22:00 General: Appears uncomfortable, Behavior is calm, cooperative. Pain: Complains of pain ha1 in right leg and lateral aspect of left calf Pain does not radiate. Pain currently is 10 out of 10 on a pain scale. Neuro: Level of Consciousness is awake, alert, obeys commands, Oriented to person, place, time, situation. Cardiovascular: Capillary refill < 3 seconds Patient's skin is warm and dry. Respiratory: Airway is patent Respiratory effort is even, unlabored, Respiratory pattern is regular, symmetrical. GI: No signs and/or symptoms were reported involving the gastrointestinal system. : No signs and/or symptoms were reported regarding the genitourinary system. Derm: Skin is normal, Wound noted medial aspect of left calf Wound is dry open sore Reports burning, pain that is 10 out of 10 on a pain scale. Musculoskeletal: Circulation, motion, and sensation intact. Range of motion: intact in all extremities. 23:00 Reassessment: Patient and/or family updated on plan of care and expected duration. Pain ha1 level reassessed. Patient is alert, oriented x 3, equal unlabored respirations, skin warm/dry/pink. pain 5/10 Patient states feeling better. Patient states symptoms have improved. 09/04 00:00 Reassessment: Patient and/or family updated on plan of care and expected duration. Pain ha1 level reassessed. Patient is alert, oriented x 3, equal unlabored respirations, skin warm/dry/pink. 01:00 Reassessment: Patient and/or family updated on plan of care and expected duration. Pain ha1 level reassessed. Patient is alert, oriented x 3, equal unlabored respirations, skin warm/dry/pink. Patient states feeling better. Patient states symptoms have improved. 02:00 Reassessment: Patient and/or family updated on plan of care and expected duration. Pain ha1 level reassessed. Patient is alert, oriented x 3, equal unlabored respirations, skin warm/dry/pink. 02:26 Reassessment: PT. REQUESTING TO BE DISCHARGE HOME TO TAKE HOME PT. STATES " I WILL ha1 RETURN I JUST NEED TO TAKE MY HOME." PROVIDED EDUCATION ON NEED FOR ADMIT AND RETURN TO HOSPITAL. Vital Signs: 09/03 21:43 BP 147 / 102; Pulse 108; Resp 17; Temp 98.3; Pulse Ox 100% ; Weight 121.11 kg; Height 6 jj7 ft. 3 in. ; Pain 10/10; 22:45 BP 138 / 77; Pulse 90; Resp 20 S; Pulse Ox 98% on R/A; ha1 23:15 BP 113 / 68; Pulse 82; Resp 17 S; Pulse Ox 97% on R/A; ha1 09/04 00:00 BP 116 / 69; Pulse 85; Resp 17 S; Pulse Ox 98% on R/A; ha1 01:00 BP 118 / 71; Pulse 82; Resp 17 S; Pulse Ox 97% on R/A; ha1 02:00 BP 117 / 67; Pulse 81; Resp 17 S; Pulse Ox 97% on R/A; ha1 09/03 21:43 Body Mass Index 33.37 (121.11 kg, 190.5 cm) [facility] 09/03 21:43 Pain Scale: Adult [facility] Zack Coma Score: 02:10 Eye Response: spontaneous(4). Motor Response: obeys commands(6). Verbal Response: sp4 oriented(5). Total: 15. ED Course: 09/03 21:38 Patient arrived in ED. j6 21:43 Alonzo Ratliff MD is Attending Physician. sp4 21:48 Triage completed. 7 21:48 Arm band placed on right wrist. 7 21:51 Patient has correct armband on for positive identification. Bed in low position. Call [facility] light in reach. 22:05 James Benton, RN is Primary Nurse. as6 22:06 Primary Nurse role handed off by James Benton, BARBIE ha1 22:06 Tara Oconnor, BARBIE is Primary Nurse. ha1 22:23 Extremity Venous Uni Ltd US In Process Unspecified. EDMS 22:25 Inserted saline lock: 20 gauge in left forearm, using aseptic technique. Blood ha1 collected. 09/04 00:30 CT Abdomen - Angio In Process Unspecified. EDMS 00:30 Lower Ext Angio In Process Unspecified. EDMS 02:14 Cas Ma MD is Referral Physician. sp4 02:30 Provided Education on: NEED FOR ADMIT . ha1 02:30 No provider procedures requiring assistance completed. IV discontinued, intact, ha1 bleeding controlled, No redness/swelling at site. Pressure dressing applied. Administered Medications: 09/03 22:35 Drug: Ondansetron IVP 4 mg IVP once; over 2 minutes Route: IVP; Site: left forearm; ha1 23:00 Follow up: Response: No adverse reaction; Marked relief of symptoms ha1 22:37 Drug: morphine IVP or IV 4 mg IVP once over 4 mins Route: IVP; Infused Over: 4 mins; ha1 Site: left forearm; 23:00 Follow up: Response: No adverse reaction; Pain is decreased; RASS: Alert and Calm (0) ha1 22:39 Drug: Ketorolac IVP 30 mg IVP once Route: IVP; Site: left forearm; ha1 23:00 Follow up: Response: No adverse reaction; Marked relief of symptoms ha1 22:40 Drug: NS 0.9% IV 1000 ml IV at 1 bolus Per protocol; 1000 mL bolus Route: IV; Rate: 1 ha1 bolus; Site: left forearm; 23:34 Follow up: Response: No adverse reaction ha1 23:54 Drug: Insulin Regular Human IVP 5 units IVP once {Co-Signature: bp (Mazin Perez Grady RN).} Route: IVP; Site: left forearm; 09/04 01:00 Follow up: Response: No adverse reaction; Marked relief of symptoms ha1 02:25 Not Given (Patient Refused): vancomycin1 grams IVPB once over 2 hrs ha1 02:25 Not Given (Patient Refused): piperacillin-tazobactam3.375 grams IVPB once over 60 mins; ha1 (mix in NS 100 mL) Medication: 00:18 VIS not applicable for this client. ha1 Outcome: 02:15 Discharge ordered by . sp4 02:30 Discharged to home ambulatory, with family, ha1 02:30 Condition: stable 02:30 Discharge instructions given to patient, Instructed on discharge instructions, the need for admit, Demonstrated understanding of instructions, 02:31 Patient left the ED. ha1 Signatures: Dispatcher [employer] EDMS Jackelin Pengj6 James Benton RN RN as6 Tara Oconnor RN RN ha1 Kit Lopez, BARBIE RN jj7 Alonzo Ratliff MD MD sp4 Mazin Perez RN bp Corrections: (The following items were deleted from the chart) 00:18 09/03 23:00 Reassessment: Patient and/or family updated on plan of care and expected ha1 duration. Pain level reassessed. Patient is alert, oriented x 3, equal unlabored respirations, skin warm/dry/pink. ha1
--- NOTE | 2023-09-04 05:03 | P.HP ---
Certification for Inpatient Patient admitted to: Inpatient With expected LOS: >2 Midnights Practitioner: I am a practitioner with admitting privileges, knowledge of patient current condition, hospital course, and medical plan of care. Services: Services provided to patient in accordance with Admission requirements found in Title 42 Section 412.3 of the Code of Federal Regulations Patient History Date of Service: 09/04/23 Reason for admission: Left leg abscess History of Present Illness: 42-year-old male with diabetes mellitus [previously unknown] presented to the ED with pain and swelling in his left lower leg that has been persistent and continued to worsen since this started 2 weeks ago. Patient was seen in the ED 6 days ago and prescribed Keflex without any improvement. He has a non draining abrasion with surrounding redness. He returned to the ED 2 days later and was given Bactrim also without any improvement. He returned to the ED today for further evaluation. On arrival his vital signs were within normal limits. Labs are notable for WBC 11.4k, Na 128 and glucose 360. Prior lab evaluation from 5 months ago when he visited the ED, he had a glucose of 265 but has not been on any diabetes medication. Imaging done in the ED, venous Doppler negative for DVT however CT of the lower extremity showed 16 cm fluid collection in the anterior compartments of the leg. He has received IV fluid bolus, vancomycin and Zosyn along with pain control with morphine and Toradol and insulin in the ED. Physical Examination - Vital Signs Temperature: 98.3 F Blood Pressure: 117/67 Pulse: 81 Respirations: 17 Pulse Ox (%): 97 - Physical Exam General: Alert, In no apparent distress, Oriented x3 HEENT: Atraumatic Neck: Supple Respiratory: Clear to auscultation bilaterally, Normal air movement Cardiovascular: No edema, Normal S1 S2 Gastrointestinal: Normal bowel sounds, Soft and benign, No tenderness Musculoskeletal: Erythema (Left anterior abrasion), Tenderness Integumentary: Skin lesion, Tenderness/swelling, Erythema, Warmth Neurological: Normal gait, Normal strength at 5/5 x4 extr - Studies Laboratory Data (last 24 hrs) 09/03/23 09/03/23 09/03/23 22:41 22:41 22:41 WBC 11.40 H Hgb 15.7 Hct 45.3 Plt Count 313 PT 15.4 H INR 1.41 Sodium 128 L Potassium 3.8 BUN 10 Creatinine 1.09 Glucose 360 H Total Bilirubin 0.7 AST 17 ALT 41 Alkaline Phosphatase 141 H Assessment and Plan - Plan Left lower extremity abscess IV antibiotics with Vanc and cefepime IV fluid Pain control He has been evaluated by general surgery and plan for surgical procedure today New diagnosis of diabetes mellitus Start moderate scale sliding scale insulin and 10 units Lantus Follow-up A1c Patient will need prescriptions at discharge - Advance Directives Does patient have a Living Will: No Does patient have a Durable POA for Healthcare: No
[2023-09-04 05:32] VITALS: BP 117/67; TEMP 98.3
[2023-09-04 06:30] VITALS: O2SAT 97
--- NOTE | 2023-09-04 13:09 | RAD REPORT ---
EXAM DESCRIPTION: CT - Lower Ext Angio - 09/04/2023 12:29 am CLINICAL HISTORY: Male, 42 years old, LEFT LEG SWELLING COMPARISON: Left tib-fib/foot radiographs and DVT ultrasound 08/28/2023 TECHNIQUE: CT acquisition of the abdomen and pelvis with lower extremity runoff through the ankles f ollowing the administration of IV contrast. Coronal and sagittal reformatted images provided. Maximal intensity projection and/or 3D sequences were created by the technologist. This exam was performed a ccording to departmental dose-optimization program which includes automated exposure control, adjustm ent of the mA and/or kV according to patient size, and/or use of iterative reconstruction technique. FINDINGS: SUPPORTIVE DEVICES: None. LOWER CHEST: Lung bases are clear. Biventricular cardiac leads are present within the normal sized he art. VASCULAR: Arteries: Assessment is limited by suboptimal contrast bolus timing, which appears late arterial with in the size and mixed venous within the lower legs. Minimal aortoiliac atherosclerosis with normal ca liber. Contrast opacifies through the popliteal artery bifurcation bilaterally without evidence of an eurysm/pseudoaneurysm, dissection, or occlusion. Veins: Suboptimally assessed. The portal vein is patent. Systemic veins are unremarkable. ABDOMEN AND PELVIS: Liver: Diffuse hypoenhancement relative to the spleen. Gallbladder and bile ducts: Normal. Pancreas: Normal. Spleen: Normal. Adrenal glands: Normal. Kidneys and ureters: Normal. Bladder: Nondistended without evident abnormality. Reproductive organs: Unremarkable. GI tract: Normal caliber without wall thickening. No evidence of appendicitis. Lymph nodes: No evident adenopathy. Peritoneum: No evidence of ascites, fluid collection, or free air. Abdominal wall: No significant hernia. LOWER EXTREMITIES: Bones: Intact. Normal osseous mineralization. Joints: No dislocation or evident joint effusion. No significant degenerative change of the hips, kne es, or ankles. Mild fibrocystic change of the femoral head/neck junctions. Muscle/tendon/soft tissues: Elongated, encapsulated mixed density fluid collection mostly within the anterior compartment of the left lower leg measures approximately 2.3 x 2.4 x 16.1 cm TR by AP by CC, appearing predominantly within the extensor hallucis and digitorum longus muscles with mild extensio n through the syndesmosis into the flexure hallucis longus muscle (coronal image 92/137). Overlying s uperficial soft tissue swelling and skin thickening. No evidence of deep fascial edema or soft tissue gas. REMAINING MUSCULOSKELETAL: No acute osseous abnormality. Degenerative change of the spine. IMPRESSION: 1. Unremarkable angiographic appearance of the abdominal aorta, pelvic and lower extre mity branches through the popliteal trifurcation within the exam limitation of suboptimal contrast arin michelle timing. 2. Complex, likely multiloculated fluid collection (abscess) measuring up to 16.1 cm predominately within the anterior compartment and minimally extending to the deep posterior compartment of the left lower leg as described above. Associated inflammation of surrounding soft tissues. 3. No acute abdominopelvic finding. Electronically signed by: Carter Shaw MD 09/04/2023 01:09 AM HOSPITALITY HOUSEKEEPER Due to temporary technical issues with the PACS/Fluency reporting system, reports are being signed by the in house radiologist without review as a courtesy to ensure prompt reporting. The interpreting r adiologist is fully responsible for the content of the report.
--- NOTE | 2023-09-04 13:36 | RAD REPORT ---
EXAM DESCRIPTION: CT - Abdomen Angio - 09/04/2023 12:28 am CLINICAL HISTORY: Male, 42 years old, LEFT LEG SWELLING CLINICAL HISTORY: Left tib-fib/foot radiographs and DVT ultrasound 08/28/2023 TECHNIQUE: CT acquisition of the abdomen and pelvis with lower extremity runoff through the ankles f ollowing the administration of IV contrast. Coronal and sagittal reformatted images provided. Maximal intensity projection and/or 3D sequences were created by the technologist. This exam was performed a ccording to departmental dose-optimization program which includes automated exposure control, adjustm ent of the mA and/or kV according to patient size, and/or use of iterative reconstruction technique. FINDINGS: SUPPORTIVE DEVICES: None. LOWER CHEST: Lung bases are clear. Biventricular cardiac leads are present within the normal sized he art. VASCULAR: Arteries: Assessment is limited by suboptimal contrast bolus timing, which appears late arterial with in the size and mixed venous within the lower legs. Minimal aortoiliac atherosclerosis with normal ca liber. Contrast opacifies through the popliteal artery bifurcation bilaterally without evidence of an eurysm/pseudoaneurysm, dissection, or occlusion. Veins: Suboptimally assessed. The portal vein is patent. Systemic veins are unremarkable. ABDOMEN AND PELVIS: Liver: Diffuse hypoenhancement relative to the spleen. Gallbladder and bile ducts: Normal. Pancreas: Normal. Spleen: Normal. Adrenal glands: Normal. Kidneys and ureters: Normal. Bladder: Nondistended without evident abnormality. Reproductive organs: Unremarkable. GI tract: Normal caliber without wall thickening. No evidence of appendicitis. Lymph nodes: No evident adenopathy. Peritoneum: No evidence of ascites, fluid collection, or free air. Abdominal wall: No significant hernia. LOWER EXTREMITIES: Bones: Intact. Normal osseous mineralization. Joints: No dislocation or evident joint effusion. No significant degenerative change of the hips, kne es, or ankles. Mild fibrocystic change of the femoral head/neck junctions. Muscle/tendon/soft tissues: Elongated, encapsulated mixed density fluid collection mostly within the anterior compartment of the left lower leg measures approximately 2.3 x 2.4 x 16.1 cm TR by AP by CC, appearing predominantly within the extensor hallucis and digitorum longus muscles with mild extensio n through the syndesmosis into the flexure hallucis longus muscle (coronal image 92/137). Overlying s uperficial soft tissue swelling and skin thickening. No evidence of deep fascial edema or soft tissue gas. REMAINING MUSCULOSKELETAL: No acute osseous abnormality. Degenerative change of the spine. IMPRESSION: 1. Unremarkable angiographic appearance of the abdominal aorta, pelvic and lower extre mity branches through the popliteal trifurcation within the exam limitation of suboptimal contrast arin michelle timing. 2. Complex, likely multiloculated fluid collection (abscess) measuring up to 16.1 cm predominately within the anterior compartment and minimally extending to the deep posterior compartment of the left lower leg as described above. Associated inflammation of surrounding soft tissues. 3. No acute abdominopelvic finding. Electronically signed by: Carter Shaw MD 09/04/2023 01:09 AM PRESS OPERATOR ASSISTANT Due to temporary technical issues with the PACS/Fluency reporting system, reports are being signed by the in house radiologist without review as a courtesy to ensure prompt reporting. The interpreting r adiologist is fully responsible for the content of the report.
== END ==
LOC: ER 21:36 → UNDOADMIN 09-04 04:55 → ERHOLD 09-04 04:55
DX: L02.416 Cutaneous abscess of left lower limb (principal); E11.9 Type 2 diabetes mellitus without complications; I10 Essential (primary) hypertension; Z95.0 Presence of cardiac pacemaker; Z28.310 Unvaccinated for COVID-19
CPT/HCPCS: 36415; 73706; 74175; 80048; 80076; 82550; 83036; 83880; 85025; 85610; 93971; 96374; 96375; 99284; J1815; J2405; J7030; Q9967

== ENCOUNTER 2023-09-04 03:24 | Inpatient (IN) | payer SELFPAY ==
--- NOTE | 2023-09-04 04:37 | ER ---
Nurse's Notes [facility] Name: Al Shelton Age: 42 yrs Sex: Male : 1980 Arrival Date: 09/04/2023 Time: 03:24 Bed 20 Private MD: Diagnosis: Diabetes mellitus type 2, deep muscular abscess left lower extremity, complications of diabetes Presentation: 09/04 03:33 Chief complaint: Chief complaint: Patient states: LLE pain of 4,onset 2 weeks with pf1 sores and redness with swelling,onset 1.5 weeks. Patient stated caused the sores to left anterior lower leg and ankle by scratching it with his other heel/foot. 03:40 Chief complaint: Patient states: I have a pain on my left lower leg that has been ha1 bothering me for days. 03:40 Coronavirus screen: Vaccine status:. Ebola Screen: No symptoms or risks identified at 1 this time. Initial Sepsis Screen: Does the patient meet any 2 criteria? No. Patient's initial sepsis screen is negative. Does the patient have a suspected source of infection? Yes: Other: wound on left lower limb. Risk Assessment: Do you want to hurt yourself or someone else? Patient reports no desire to harm self or others. Onset of symptoms was August 30, 2023. 03:40 Method Of Arrival: Ambulatory ha1 03:40 Acuity: CARIDAD 3 ha1 Triage Assessment: 03:35 General: Appears uncomfortable, Behavior is cooperative. Pain: Complains of pain in ha1 medial aspect of left calf Pain does not radiate. Pain currently is 8 out of 10 on a pain scale. Quality of pain is described as pressure, throbbing, Pain began gradually, 2-3 days ago. Neuro: Level of Consciousness is awake, alert, obeys commands, Oriented to person, place, time, situation. Cardiovascular: Capillary refill < 3 seconds. Respiratory: Airway is patent Respiratory effort is even, unlabored, Respiratory pattern is regular, symmetrical. GI: No signs and/or symptoms were reported involving the gastrointestinal system. : No signs and/or symptoms were reported regarding the genitourinary system. Derm: Wound noted lateral aspect of left calf Wound is dry no drainage Reports burning, itching, pain that is 8 out of 10 on a pain scale. Musculoskeletal: Circulation, motion, and sensation intact. Range of motion: intact in all extremities. Historical: - Allergies: 03:35 NKDA; ha1 04:22 NKDA; pf1 - PMHx: 03:35 Hypertensive disorder; ha1 04:22 Hypertensive disorder; pf1 - PSHx: 03:35 pacemaker; ha1 04:22 pacemaker; pf1 - Immunization history:: Adult Immunizations unknown. - Social history:: Smoking status: Patient/guardian denies using tobacco, the patient reports quitting approximately 4 years ago. - Family history:: not pertinent. Screenin:35 [facility] ED Fall Risk Assessment (Adult) History of falling in the last 3 months, ha1 including since admission No falls in past 3 months (0 pts) Confusion or Disorientation No (0 pts) Intoxicated or Sedated No (0 pts) Impaired Gait No (0 pts) Mobility Assist Device Used No (0 pt) Altered Elimination No (0 pt) Score/Fall Risk Level 0 - 2 = Low Risk Oriented to surroundings, Maintained a safe environment, Educated pt \T\ family on fall prevention, incl call for assistance when getting out of bed, Hourly rounding (assess needs \T\ fall precautionary measures) done. Abuse screen: Denies threats or abuse. Denies injuries from another. Nutritional screening: No deficits noted. Tuberculosis screening: No symptoms or risk factors identified. Assessment: 03:33 Reassessment: see triage assessment. ha1 04:30 Reassessment: Patient and/or family updated on plan of care and expected duration. Pain ha1 level reassessed. Patient is alert, oriented x 3, equal unlabored respirations, skin warm/dry/pink. 05:30 Reassessment: Patient and/or family updated on plan of care and expected duration. Pain ha1 level reassessed. Patient is alert, oriented x 3, equal unlabored respirations, skin warm/dry/pink. Vital Signs: 03:40 BP 112 / 72; Pulse 75; Resp 17 S; Temp 98.1; Pulse Ox 100% on R/A; ha1 04:30 BP 114 / 80; Pulse 69; Resp 19; Pulse Ox 99% ; jj7 05:34 BP 123 / 84; Pulse 66; Resp 17; Pulse Ox 99% ; jj7 06:35 BP 114 / 73; Pulse 67; Resp 17 S; Pulse Ox 97% on R/A; Weight 121.11 kg; Height 6 ft. 3 ha1 in. ; 06:35 Body Mass Index 33.37 (121.11 kg, 190.5 cm) ha1 ED Course: 03:32 Patient arrived in ED. gm2 03:33 Patient has correct armband on for positive identification. Placed in gown. Bed in low ha1 position. Call light in reach. Side rails up X 1. 03:39 Alonzo Ratliff MD is Attending Physician. sp4 03:45 Missed attempt(s): 20 gauge Bleeding controlled, band aid applied, catheter tip intact. oe 03:54 Inserted saline lock: 22 gauge in left forearm, using aseptic technique. oe 04:20 Triage completed. ha1 04:25 Mak Garcia MD is Hospitalizing Provider. sp4 06:18 Tara Oconnor, RN is Primary Nurse. ha1 Administered Medications: 05:39 Drug: Piperacillin-Tazobactam IVPB 3.375 grams IVPB once over 60 mins; (mix in NS 100 ha1 mL) Route: IVPB; Infused Over: 60 mins; Site: left forearm; 06:18 Drug: vancoMYCIN IVPB 1 grams IVPB once over 2 hrs Route: IVPB; Infused Over: 2 hrs; ha1 Site: left forearm; Medication: 04:27 VIS not applicable for this client. ha1 Outcome: 04:25 Decision to Hospitalize by Provider. sp4 13:00 Patient left the ED. ph Signatures: Tierra Fletcher RN RN Sergo Tinoco Tara Oconnor RN RN ha1 Kit Lopez RN RN jj7 Finley, Pamala, RN RN pfAlonzo Hernandez MD MD sp4 Maeve Holguin gm2 Corrections: (The following items were deleted from the chart) 04:20 03:51 Chief complaint: ha1 ha1 04:23 04:22 PMHx: bradycardia (pacemaker); pf1 pf1 06:52 06:35 BP 114 / 73; Pulse 67bpm; Resp 17bpm; Spontaneous; Pulse Ox 97% RA; ha1 ha1
--- NOTE | 2023-09-04 04:37 | EDPHYS ---
Physician Documentation [facility] Name: Al Shelton Age: 42 yrs Sex: Male : 1980 Arrival Date: 09/04/2023 Time: 03:24 Bed 20 Private MD: ED Physician Alonzo Ratliff HPI: 09/04 03:39 This 42 yrs old Male presents to ER via Unassigned with complaints of Left sp4 lower leg pain . 07:18 Patient is a 42-year-old male who has had left lower extremity pain since 08/27/2023. sp4 Patient presented for evaluation 09/03/2023 and was discovered fluid collection in the left lower extremity deep musculature. Patient was monitored for admission but he decided to go home to settle some home chores then he has returned back to the emergency department to be admitted for evaluation. . Historical: - Allergies: 03:35 NKDA; ha1 04:22 NKDA; pf1 - PMHx: 03:35 Hypertensive disorder; ha1 04:22 Hypertensive disorder; pf1 - PSHx: 03:35 pacemaker; ha1 04:22 pacemaker; pf1 - Immunization history:: Adult Immunizations unknown. - Social history:: Smoking status: Patient/guardian denies using tobacco, the patient reports quitting approximately 4 years ago. - Family history:: not pertinent. ROS: 07:18 Constitutional: Negative for fever, chills, and weight loss, positive for left lower sp4 extremity pain and swelling 07:18 All other systems are negative, Exam: 07:18 Constitutional: This is a well developed, well nourished patient who is awake, alert, sp4 and in no acute distress. Head/Face: Normocephalic, atraumatic. Eyes: Pupils equal round and reactive to light, extra-ocular motions intact. Lids and lashes normal. Conjunctiva and sclera are not injected. Cornea within normal limits. Periorbital areas with no swelling, redness, or edema. ENT: Nares patent. No nasal discharge, no septal abnormalities noted. Tympanic membranes are normal and external auditory canals are clear. Oropharynx with no redness, swelling, or masses, exudates, or evidence of obstruction, uvula midline. Mucous membranes moist. Neck: Trachea midline, no thyromegaly or masses palpated, and no cervical lymphadenopathy. Supple, full range of motion without nuchal rigidity, or vertebral point tenderness. Chest/axilla: Normal chest wall appearance and motion. Nontender with no deformity. No lesions are appreciated. Cardiovascular: Regular rate and rhythm with a normal S1 and S2. No gallops, murmurs, or rubs. Normal PMI, no JVD. No pulse deficits. Respiratory: Lungs have equal breath sounds bilaterally, clear to auscultation and percussion. No rales, rhonchi or wheezes noted. No increased work of breathing, no retractions or nasal flaring. Abdomen/GI: Soft, non-tender, with normal bowel sounds. No distension or tympany. No guarding or rebound. No evidence of tenderness throughout. Back: No spinal tenderness. No costovertebral tenderness. Skin: Warm, dry with normal turgor. Normal color with no rashes, no lesions, and no evidence of cellulitis. MS/ Extremity: Pulses equal, no cyanosis. Neurovascular intact. Full, normal range of motion. Positive left lower extremity swelling and tenderness to left lateral anterior aspect of left lower extremity. No sign of cellulitis Neuro: Awake and alert, GCS 15, oriented to person, place, time, and situation. Cranial nerves II-XII grossly intact. Motor strength 5/5 in all extremities. Sensory grossly intact. Psych: Awake, alert, with orientation to person, place and time. Behavior, mood, and affect are within normal limits Vital Signs: 03:40 BP 112 / 72; Pulse 75; Resp 17 S; Temp 98.1; Pulse Ox 100% on R/A; ha1 04:30 BP 114 / 80; Pulse 69; Resp 19; Pulse Ox 99% ; jj7 05:34 BP 123 / 84; Pulse 66; Resp 17; Pulse Ox 99% ; jj7 06:35 BP 114 / 73; Pulse 67; Resp 17 S; Pulse Ox 97% on R/A; Weight 121.11 kg; Height 6 ft. 3 ha1 in. ; 06:35 Body Mass Index 33.37 (121.11 kg, 190.5 cm) ha1 MDM: 04:13 Patient medically screened. sp4 04:37 ED course: ABDOMEN AND PELVIS: Liver: Diffuse hypoenhancement relative to the spleen. sp4 Gallbladder and bile ducts: Normal. Pancreas: Normal. Spleen: Normal. Adrenal glands: Normal. Kidneys and ureters: Normal. Bladder: Nondistended without evident abnormality. Reproductive organs: Unremarkable. GI tract: Normal caliber without wall thickening. No evidence of appendicitis. Lymph nodes: No evident adenopathy. Peritoneum: No evidence of ascites, fluid collection, or free air. Abdominal wall: No significant hernia. LOWER EXTREMITIES: Bones: Intact. Normal osseous mineralization. Joints: No dislocation or evident joint effusion. No significant degenerative change of the hips, knees, or ankles. Mild fibrocystic change of the femoral head/neck junctions. Muscle/tendon/soft tissues: Elongated, encapsulated mixed density fluid collection mostly within the anterior compartment of the left lower leg measures approximately 2.3 x 2.4 x 16.1 cm TR byAP by CC, appearing predominantly within the extensor hallucis and digitorum longus muscles with mild extension through the syndesmosis into the flexure hallucis longus muscle (coronal image 92/137). Overlying superficial soft tissue swelling and skin thickening. No evidence of deep fascial edema or soft tissue gas. REMAINING MUSCULOSKELETAL: No acute osseous abnormality. Degenerative change of the spine. . ED course: IMPRESSION: 1. Unremarkable angiographic appearance of the abdominal aorta, pelvic and lower extremity branches through the popliteal trifurcation within the exam limitation of suboptimal contrast bolus timing. 2. Complex, likely multiloculated fluid collection (abscess) measuring up to 16.1 cm predominately within the anterior compartment and minimally extending to the deep posterior compartment of the left lower leg as described above. Associated inflammation of surrounding soft tissues. 3. No acute abdominopelvic finding.. 04:37 ED course: EXAM DESCRIPTION: US - Extremity Venous Uni Ltd - 09/03/2023 10:21 pm sp4 CLINICAL HISTORY: left leg pain Leg swelling and edema. COMPARISON: Extremity Venous Uni Ltd dated 08/28/2023 FINDINGS: Left lower extremity venous system was interrogated with Doppler technique. Normal flow, compressibility and augmentation was noted. There is no DVT present.Complex collection left lateral calf area of pain is nonspecific. This could be a hematoma or related to muscle tearing. Nonemergent MRI followup would be suggested. IMPRESSION: No evidence of left lower extremity deep venous thrombosis. . 07:18 Differential Diagnosis altered mental status, sepsis, flu. Data reviewed: vital signs, sp4 nurses notes, old medical records, lab test result(s), radiologic studies, CT scan, ultrasound. Consideration of Admission/Observation Patient was admitted/placed on observation. Escalation of care including admission/observation considered. Management of patient was discussed with the following: Hospitalist: Admission team. [place] Leadperson: Francesca BETTENCOURT . ED course: Patient stable for admission at this time. The entirety of the workup labs CT angio left lower extremity and also ultrasound -accomplished yesterday 09/03/2023 . Will be evaluated by general surgeon for incision and drainage of left lower extremity deep abscess or hematoma. 09/04 06:09 Order name: Urinalysis w/ reflexes EDMS 09/04 06:09 Order name: CBC with Automated Diff EDMS 09/04 06:09 Order name: CBC with Automated Diff EDMS 09/04 06:09 Order name: Comprehensive Metabolic Panel EDMS 09/04 06:09 Order name: Comprehensive Metabolic Panel EDIN 09/04 06:09 Order name: Magnesium EDIN 09/04 06:09 Order name: Magnesium EDIN 09/04 06:14 Order name: Hemoglobin A1c EDIN 09/04 06:14 Order name: Lipid Profile EDMS 09/04 09:15 Order name: Glucose, Ancillary Testing; Complete Time: 04:07 EDMS 09/04 12:30 Order name: Glucose, Ancillary Testing; Complete Time: 04:07 EDMS Administered Medications: 05:39 Drug: Piperacillin-Tazobactam IVPB 3.375 grams IVPB once over 60 mins; (mix in NS 100 ha1 mL) Route: IVPB; Infused Over: 60 mins; Site: left forearm; 06:18 Drug: vancoMYCIN IVPB 1 grams IVPB once over 2 hrs Route: IVPB; Infused Over: 2 hrs; ha1 Site: left forearm; Disposition Summary: 09/04/23 04:25 Hospitalization Ordered Notes: Hospitalization Status: Inpatient Admission sp4 Provider: Mak Garcia sp4 Condition: Stable sp4 Problem: new sp4 Symptoms: have improved sp4 Bed/Room Type: Standard sp4 Location: [facility] ER HOLD(09/04/23 07:44) bd Room Assignment: ERHOLD-(09/04/23 07:44) bd Diagnosis - Diabetes mellitus type 2, deep muscular abscess left lower extremity, complications sp4 of diabetes Forms: - Medication Reconciliation Form sp4 - SBAR form sp4 - Leadership Thank You Letter sp4 Signatures: Dispatcher [employer] EDCira Dumont bd Tara Oconnor RN RN ha1 Lisa Bhardwaj RN RN pf1 Alonzo Ratliff MD MD sp4 Corrections: (The following items were deleted from the chart) 04:23 04:22 PMHx: bradycardia (pacemaker); pf1 pf1 04:25 Telemetry/MedSurg (Inpatient) sp4 bd 04:25 sp4 bd
--- NOTE | 2023-09-04 06:01 | P.HP ---
Date of Service: 09/04/23 [facility] Certification for Inpatient Patient admitted to: Inpatient With expected LOS: >2 Midnights Practitioner: I am a practitioner with admitting privileges, knowledge of patient current condition, hospital course, and medical plan of care. Services: Services provided to patient in accordance with Admission requirements found in Title 42 Section 412.3 of the Code of Federal Regulations Patient History Date of Service: 09/04/23 Reason for admission: Left leg abscess History of Present Illness: 42-year-old male with diabetes mellitus [previously unknown] presented to the ED with pain and swelling in his left lower leg that has been persistent and continued to worsen since this started 2 weeks ago. Patient was seen in the ED 6 days ago and prescribed Keflex without any improvement. He has a non draining abrasion with surrounding redness. He returned to the ED 2 days later and was given Bactrim also without any improvement. He returned to the ED today for further evaluation. On arrival his vital signs were within normal limits. Labs are notable for WBC 11.4k, Na 128 and glucose 360. Prior lab evaluation from 5 months ago when he visited the ED, he had a glucose of 265 but has not been on any diabetes medication. Imaging done in the ED, venous Doppler negative for DVT however CT of the lower extremity showed 16 cm fluid collection in the anterior compartments of the leg. He has received IV fluid bolus, vancomycin and Zosyn along with pain control with morphine and Toradol and insulin in the ED. Physical Examination - Vital Signs Temperature: 98.3 F Blood Pressure: 117/67 Pulse: 81 Respirations: 17 Pulse Ox (%): 97 - Physical Exam General: Alert, In no apparent distress, Oriented x3 HEENT: Atraumatic Neck: Supple Respiratory: Clear to auscultation bilaterally, Normal air movement Cardiovascular: No edema, Normal S1 S2 Gastrointestinal: Normal bowel sounds, Soft and benign, No tenderness Musculoskeletal: Erythema (Left anterior abrasion), Tenderness Integumentary: Skin lesion, Tenderness/swelling, Erythema, Warmth Neurological: Normal gait, Normal strength at 5/5 x4 extr - Studies Laboratory Data (last 24 hrs) 09/03/23 09/03/23 09/03/23 22:41 22:41 22:41 WBC 11.40 H Hgb 15.7 Hct 45.3 Plt Count 313 PT 15.4 H INR 1.41 Sodium 128 L Potassium 3.8 BUN 10 Creatinine 1.09 Glucose 360 H Total Bilirubin 0.7 AST 17 ALT 41 Alkaline Phosphatase 141 H Assessment and Plan - Plan Left lower extremity abscess IV antibiotics with Vanc and cefepime IV fluid Pain control He has been evaluated by general surgery and plan for surgical procedure today New diagnosis of diabetes mellitus Start moderate scale sliding scale insulin and 10 units Lantus Follow-up A1c Patient will need prescriptions at discharge - Advance Directives Does patient have a Living Will: No Does patient have a Durable POA for Healthcare: No
[2023-09-04] MEDS ORDERED: ONDANSETRON 4 MG/2 ML VIAL IV PRN (06:05)
[2023-09-04] MEDS ORDERED: ACETAMINOPHEN 325 MG TABLET PO PRN (06:05)
[2023-09-04] MEDS ORDERED: VANCOMYCIN 1 GM in NA CHLORIDE 0.9% 250 ML IVPB ONE ×2 (07:00→08:00)
[2023-09-04] MEDS: NA CHLORIDE 0.9% 1,000 ML IV SCH ×3 (07:00→16:57)
[2023-09-04 07:04] VITALS: BMI 33.3
[2023-09-04] MEDS: INSULIN REGULAR (HUMAN) 100 UNIT/ML SQ SCH ×4 (07:30→22:02)
[2023-09-04] MEDS ORDERED: GLUCAGON 1 MG/VIAL IM PRN (07:34)
[2023-09-04] MEDS ORDERED: D50W 25 GM/50 ML SYRINGE IV PRN (07:34)
[2023-09-04] MEDS ORDERED: D10W 125 ML IV PRN (07:41)
[2023-09-04] MEDS: ENOXAPARIN 40 MG/0.4 ML SQ SCH (09:00)
[2023-09-04] MEDS: CEFEPIME 2 GM in NA CHLORIDE 0.9% 100 ML IV SCH ×2 (09:00→22:02)
[2023-09-04] MEDS ORDERED: VANCOMYCIN 1 GM/VIAL ONE (09:08)
[2023-09-04] MEDS ORDERED: NA CHLORIDE 0.9% 250 ML ONE (09:09)
[2023-09-04] MEDS ORDERED: CEFEPIME 2 GM VIAL ONE (09:09)
[2023-09-04] MEDS ORDERED: NA CHLORIDE 0.9% 100 ML ONE (09:09)
[2023-09-04] MEDS ORDERED: NA CHLORIDE 0.9% 1,000 ML ONE (09:09)
[2023-09-04] MEDS ORDERED: FENTANYL CITR 100 MCG/2 ML ONE ×3 (13:39→15:33)
[2023-09-04] MEDS ORDERED: propofoL 200 MG/20 ML VIAL IV ONE (13:39)
[2023-09-04] MEDS ORDERED: LIDOCAINE 2% MPF 5 ML VIAL ONE (13:39)
[2023-09-04] MEDS ORDERED: ONDANSETRON 4 MG/2 ML VIAL ONE (13:39)
[2023-09-04] MEDS ORDERED: MIDAZOLAM HCL 2 MG/2 ML INJ ONE (13:40)
[2023-09-04] MEDS ORDERED: BUPIVACAINE 0.25% PF 30 ML VIAL ONE (13:46)
[2023-09-04] MEDS ORDERED: VANCOMYCIN 1 GM in NA CHLORIDE 0.9% 250 ML IVPB SCH (14:00)
--- NOTE | 2023-09-04 15:40 | P.OP ---
Preoperative diagnosis: LEFT Lower Extremity Intramuscular Multiloculated Abscess Postoperative diagnosis: LEFT Lower Extremity Intramuscular Multiloculated Abscess Primary procedure: Incision and Drainage of LEFT Lower Extremity Intramuscular Abscess Anesthesia: GETA + Local Estimated blood loss: 50cc Specimen: Cultures x 2 Findings: Large Multiloculated abscess abutting intraosseus septum ~ 18cm Complications: None Transferred to: Recovery Room Condition: Good
--- NOTE | 2023-09-04 15:45 | P.PN ---
Date of Service: 09/04/23 Patient seen and examined. No recorded fever. CT abdomen pelvis and lower extremities results reviewed. Left leg abscess. Small abrasion on the [place] of the left leg. Newly diagnosed diabetes. Plan: Surgery Dr. Ma is planning incision and drainage today. Aggressive IV antibiotics. Aggressive blood sugar control. Patient started on NPH 70/30. Titrate for glycemic control. Insulin sliding scale. Analgesics as needed. Follow deep tissue wound culture.
[2023-09-04] MEDS ORDERED: MORPHINE 2 MG/ML SYR IV PRN (15:46)
[2023-09-04] MEDS: HYDROMORPHONE HCL 1 MG/ML INJ ONE ×2 (16:09→16:14)
[2023-09-04 16:15] VITALS: O2SAT 96
[2023-09-04] MEDS: Oxycodone HCl/Acetaminophen 5/325 MG TAB PO PRN ×2 (16:58→21:21)
[2023-09-04] MEDS: VANCOMYCIN 2 GM in NA CHLORIDE 0.9% 500 ML IVPB SCH (16:58)
[2023-09-04] MEDS ORDERED: VANCOMYCIN 2 GM in NA CHLORIDE 0.9% 500 ML IVPB SCH (19:00)
[2023-09-04] MEDS: INSULIN 70/30 100 UNITS/ML SQ SCH (21:00)
[2023-09-04] MEDS ORDERED: INSULIN GLARGINE 100 UNIT/ML SQ SCH (21:00)
--- NOTE | 2023-09-04 22:53 | OP ---
Date of Procedure: 09/04/2023 Surgeon: Cas Ma MD, Brief History Of Present Illness: The patient is a 42-year-old male who presented to the hospital [facility] left lower extremity pain for approximately 2 weeks. He states it has been getting progressively worse. He has had multiple episodes of hyperglycemia with his blood sugar in the 500-600 range by hi s report. He did not have any trauma to the area, but noted significant swelling, pain and it got pr ogressively worse and as such, he came to the emergency room on several different occasions for treat ment of this. Antibiotics were attempted without success and as such, he presented back to the ER [facility] the above-stated complaints. CT imaging noted a multiloculated abscess of the left lower extremit y, intramuscular component, which is quite large. As such, I was consulted to see the patient. I harrison ve explained the risks, benefits, and alternatives of incision and drainage of this large left multil oculated abscess, including but not limited to bleeding, infection, damage to any of the internal str uctures, paralysis of the leg, nerve injury, footdrop, weakness of the lower extremities, need for on going wound care, need for further surgical procedures, bleeding, heart attack, strokes, complication in the perioperative period. The patient agreed to proceed as indicated and all questions were answ ered. Preoperative Diagnosis: Left lower extremity multiloculated abscess. Postoperative Diagnosis: Left lower extremity multiloculated abscess. Procedure: Incision and drainage of left lower extremity intramuscular multiloculated abscess. Anesthesia: General endotracheal plus local with 0.25% Marcaine. Estimated Blood Loss: 50 cc. Specimen: Cultures sent both for aerobic and anaerobic speciation x2. Findings: There was a large multiloculated abscess abutting the interosseous septum, which is approx imately 18 cm in length along the interosseous septum. Complications: None. Disposition: The patient transferred to recovery room in good condition. Procedure In Detail: After informed consent was obtained, patient brought to the operating room, pre pped and draped in the usual sterile fashion. After adequate anesthesia was achieved, a medial linea r incision overlying the area of tenderness. After mapping using the CT scan images, I anesthetized the area of the lateral compartment near the anterior lateral compartment. I incised the skin for ap proximately 16 cm in size down through subcutaneous tissues. I then used electrocautery to dissect d own through the fascial plane and performed blunt dissection through the muscular plane using hemosta ts at first and then gentle blunt dissection to prevent from transecting any muscle. I then encounte red the large multiloculated abscess, which had significant thick viscous abscess like material. Cul tures were sent for both aerobic and anaerobic speciation x2, separate specimens in this area. There was a large amount of fluid emanating from this area. I had to digitally break up this multiloculat ed abscess with multiple pockets. There was evidence of blood clots in this area as well, but it was a minority of the fluid collection. The majority was abscess material. After this was completely c leaned out, I used a pulse lavage device to irrigate out the cavity until it was completely clean. H emostasis was achieved with minimal electrocautery. I then packed the wound with Vashe soaked Kerlix and a sterile dressing placed over top. The patient tolerated the procedure without incident or com plication and transferred to PACU in good condition. All counts were correct at the end of the case. INDIRA/MELBA Voice ID: [id number] Report ID: [id number]
[2023-09-05] MEDS: Oxycodone HCl/Acetaminophen 5/325 MG TAB PO PRN ×4 (05:02→17:39)
[2023-09-05 05:18] LABS: Specific Gravity 1.009 (1.005-1.030); Urine Bilirubin NEGATIVE (Negative); Urine Blood Negative (Negative); Urine Clarity Clear (Clear); Urine Color Light-Yellow (Yellow); Urine Glucose 4+ (Over) (Negative); Urine Protein NEGATIVE (Negative); Urine Urobilinogen 1+ (Normal)
[2023-09-05 07:52] LABS: Absolute Lymphocytes (CBC) 2.7 K/uL (0.7-4.9); Hematocrit 41.8 % (39.6-49.0); Lymphocytes % 22.9 % (15.3-44.8); MCV 88.9 fL (80-100); MPV 7.3 fL (7.6-11.3); Platelets 315 thou/uL (152-406); RBC Red Blood Cell Count 4.71 M/uL (4.33-5.43)
[2023-09-05 08:07] LABS: Albumin 2.3 g/dL (3.4-5.0); Bilirubin Total 0.7 mg/dL (0.2-1.0); Potassium 3.7 mEq/L (3.5-5.1)
[2023-09-05 08:08] LABS: Magnesium 2.2 mg/dL (1.6-2.4)
[2023-09-05] MEDS: ENOXAPARIN 40 MG/0.4 ML SQ SCH (08:15)
[2023-09-05] MEDS: CEFEPIME 2 GM in NA CHLORIDE 0.9% 100 ML IV SCH ×2 (08:15→20:55)
[2023-09-05] MEDS: VANCOMYCIN 2 GM in NA CHLORIDE 0.9% 500 ML IVPB SCH ×2 (08:15→18:00)
[2023-09-05] MEDS: NA CHLORIDE 0.9% 1,000 ML IV SCH (08:16)
[2023-09-05] MEDS: INSULIN 70/30 100 UNITS/ML SQ SCH ×2 (08:32→20:56)
[2023-09-05] MEDS: INSULIN REGULAR (HUMAN) 100 UNIT/ML SQ SCH ×4 (08:34→20:56)
--- NOTE | 2023-09-05 12:57 | P.CNS ---
Date of Consult: 09/05/23 Reason for Consult: left lower extremity abscess Requesting Physician: reddy pereyra Chief Complaint: left lower extremity pain and swelling History of Present Illness: Patient is a 42 yo male with a medical history of diabetes mellitus type II (new diagnosis on admit) and pacemaker who presented to the ED with complaints of pain and swelling of left lower leg. He reports sustaining an abrasion to his left leg about 2 weeks, which has progressively been worsening. He failed outpatient antibiotic therapy on cephalexin (prescribed 08/29) and Bactrim (prescribed 08/31). CT showing multiloculated abscesses. Patient underwent I&D on 09/[address] Ma, cultures obtained. He is currently on empiric cefepime and vancomycin. Infectious disease was consulted. Allergies No Known Allergies Allergy (Unverified 09/04/23 06:54) - Past Medical/Surgical History Diabetic: Yes - Social History Smoking Status: Unknown if ever smoked Alcohol use: No CD- Drugs: No Caffeine use: No Review of Systems Musculoskeletal: Leg Pain (Left lower leg) Physical Examination Temp Pulse Resp BP Pulse Ox 98.0 F 80 18 136/80 97 09/05/23 08:00 09/05/23 08:00 09/05/23 08:00 09/05/23 08:00 09/05/23 08:00 General: Alert, In no apparent distress, Oriented x3 HEENT: Atraumatic, Normocephalic Neck: Supple Respiratory: Clear to auscultation bilaterally, Normal air movement Cardiovascular: No edema, Other (paced rhythm) Gastrointestinal: Normal bowel sounds, Soft and benign, Non-distended, No tenderness Integumentary: Tenderness/swelling (LLE), Other (surgical incision site dressing is clean dry and intact) Neurological: Normal speech, Normal tone, Normal affect Laboratory Data - Reviewed Microbiology Data - Reviewed Imagings Data: - Reviewed Conclusions/Impression: Problem List Left lower extremity intramuscular multiloculated abscess diabetes mellitus type II, new diagnosis Pacemaker Left lower extremity intramuscular multiloculated abscess - CT left lower extremity 09/03: " Complex, likely multiloculated fluid collection (abscess) measuring up to 16.1 cm predominately within the anterior compartment and minimally extending to the deep posterior compartment of the left lower leg as described above. Associated inflammation of surrounding soft tissues." - s/p incision and drainage on 09/[address] Ma --> findings of large multiloculated abscess abutting intraosseus septum ~18cm - Wound cultures 09/04: pending - Currently on Cefepime and Vancomycin (started 09/04) WBC 11.8 Afebrile Recommendations - Continue cefepime and vancomycin IV for now. - Awaiting final culture/sensitivity results. Will adjust antibiotics as appropriate - Wound care per Dr. Ma - Strict blood glucose control - Monitor WBC trends - pain management per primary team Case discussed with Seth Chapman
--- NOTE | 2023-09-05 14:17 | P.PN ---
Subjective Date of Service: 09/05/23 Chief Complaint: left lower extremity pain and swelling Patient denies any complaint except intermittent pain in the left leg. Status post incision and drainage yesterday. No recorded fever, he has been tolerating diet. Physical Examination - Vital Signs Temperature: 98.0 F Blood Pressure: 123/62 Pulse: 78 Respirations: 18 Pulse Ox (%): 97 - Physical Exam General: Alert, In no apparent distress, Oriented x3 HEENT: Mucous membr. moist/pink Neck: JVD not distended Respiratory: Clear to auscultation bilaterally, Normal air movement Cardiovascular: No edema, Regular rate/rhythm, Normal S1 S2 Gastrointestinal: Normal bowel sounds, Soft and benign, Non-distended, No tenderness Musculoskeletal: Other (Left leg in Ricci wrap) Integumentary: No cyanosis Neurological: Normal strength at 5/5 x4 extr Assessment And Plan - Plan Left lower extremity abscess Seen by surgery Dr. Ma. Status post incision and drainage. Large incision on the left leg Deep tissue wound cultures are pending Continue IV antibiotics with Vanc and cefepime Analgesics as needed. New diagnosis of diabetes mellitus Hemoglobin A1c is 10.5. Blood sugars well-controlled on NPH 70/30 and insulin sliding scale. DVT prophylaxis: Lovenox.
[2023-09-05] MEDS: VANCOMYCIN 1.75 GM in NA CHLORIDE 0.9% 500 ML IVPB SCH (20:55)
[2023-09-06] MEDS: Oxycodone HCl/Acetaminophen 5/325 MG TAB PO PRN ×4 (03:16→20:30)
[2023-09-06] MEDS: INSULIN REGULAR (HUMAN) 100 UNIT/ML SQ SCH ×4 (07:30→20:34)
[2023-09-06] MEDS: ENOXAPARIN 40 MG/0.4 ML SQ SCH (08:36)
[2023-09-06] MEDS: CEFEPIME 2 GM in NA CHLORIDE 0.9% 100 ML IV SCH ×2 (08:37→21:00)
[2023-09-06] MEDS: INSULIN 70/30 100 UNITS/ML SQ SCH ×2 (08:37→20:34)
[2023-09-06] MEDS: VANCOMYCIN 1.75 GM in NA CHLORIDE 0.9% 500 ML IVPB SCH ×2 (08:40→20:30)
--- NOTE | 2023-09-06 08:53 | P.PN ---
Date of Service: 09/06/23 Chief Complaint: left lower extremity pain and swelling Subjective: Patient seen and examined at bedside. Reports he is tired, did not sleep well overnight. + LLE pain No acute events overnight. In no apparent distress. Physical Examination Temp Pulse Resp BP Pulse Ox 97.5 F 83 20 126/70 96 09/06/23 04:00 09/06/23 04:00 09/06/23 04:16 09/06/23 04:00 09/06/23 04:16 General: Alert, In no apparent distress, Oriented x3 HEENT: Atraumatic, Normocephalic Respiratory: Clear to auscultation bilaterally, Normal air movement Cardiovascular: Paced rhythm. LLE edema. Gastrointestinal: Normal bowel sounds, Soft and benign, Non-distended, No tenderness Integumentary: LLE Tenderness/swelling. Surgical incision site dressing is clean dry and intact. Neurological: Normal speech, Normal tone, Normal affect Laboratory Data - Reviewed Microbiology Data - Reviewed Imagings Data: - Reviewed Medications List: Reviewed Assessment and Plan Problem List Left lower extremity intramuscular multiloculated abscess diabetes mellitus type II, new diagnosis Pacemaker Left lower extremity intramuscular multiloculated abscess - CT left lower extremity 09/03: " Complex, likely multiloculated fluid collection (abscess) measuring up to 16.1 cm predominately within the anterior compartment and minimally extending to the deep posterior compartment of the left lower leg as described above. Associated inflammation of surrounding soft tissues." - s/p incision and drainage on 09/[address] Ma --> findings of large multiloculated abscess abutting interosseus septum ~18cm - Deep tissue wound cultures 09/04: coagulase-positive staphylococcus - no anaerobes grown - Currently on Cefepime and Vancomycin (started 09/04) Leukocytosis resolved. Afebrile Recommendations - Recommend antibiotic therapy for at least 14 days (started 09/04) - Continue cefepime and vancomycin IV for now. - Awaiting final speciation/sensitivity results from deep tissue culture. Will adjust antibiotics as appropriate. - Wound care per Dr. Ma - Strict blood glucose control. Newly diagnosed diabetes, HgbA1c 10.5. - pain management per primary team Case discussed with Seth Chapman
[2023-09-06 10:31] LABS: Absolute Lymphocytes (CBC) 2.4 K/uL (0.7-4.9); Hematocrit 41.6 % (39.6-49.0); Lymphocytes % 23.2 % (15.3-44.8); MCV 89.5 fL (80-100); MPV 7.1 fL (7.6-11.3); Platelets 308 thou/uL (152-406); RBC Red Blood Cell Count 4.66 M/uL (4.33-5.43)
[2023-09-06 10:49] LABS: Potassium 3.7 mEq/L (3.5-5.1)
[2023-09-06] MEDS: MORPHINE 2 MG/ML SYR IV PRN (12:20)
[2023-09-06] MEDS: NA CHLORIDE 0.9% 1,000 ML IV SCH (13:18)
--- NOTE | 2023-09-06 14:08 | P.PN ---
Subjective Date of Service: 09/06/23 Chief Complaint: left lower extremity pain and swelling Patient has no new complaint. He states his pain is well-controlled. No recorded fever. Physical Examination - Vital Signs Temperature: 97.0 F Blood Pressure: 125/83 Pulse: 70 Respirations: 16 Pulse Ox (%): 96 - Physical Exam General: Alert, In no apparent distress, Oriented x3 HEENT: Mucous membr. moist/pink Neck: JVD not distended Respiratory: Clear to auscultation bilaterally Cardiovascular: No edema, Regular rate/rhythm, Normal S1 S2 Gastrointestinal: Normal bowel sounds, Soft and benign, Non-distended, No tenderness Integumentary: Other (Right leg wound dressed and in Ricci wrap) Neurological: Normal strength at 5/5 x4 extr Assessment And Plan - Plan Left lower extremity abscess Seen by surgery Dr. Ma. Status post incision and drainage. Large incision on the left leg Deep tissue wound cultures: Coagulase positive staph. Follow culture results. Continue IV antibiotics with Vanc and cefepime Analgesics as needed. Local wound care with packing. New diagnosis of diabetes mellitus Hemoglobin A1c is 10.5. Blood sugars well-controlled on NPH 70/30 and insulin sliding scale. DVT prophylaxis: Lovenox.
[2023-09-06] MEDS: LIDOCAINE HCL JELLY 2% 6 ML SYRINGE TOP SCH (15:00)
[2023-09-07] MEDS: NA CHLORIDE 0.9% 1,000 ML IV SCH ×2 (01:40→15:00)
[2023-09-07] MEDS: Oxycodone HCl/Acetaminophen 5/325 MG TAB PO PRN ×4 (02:59→18:12)
[2023-09-07] MEDS ORDERED: VANCOMYCIN 2 GM in NA CHLORIDE 0.9% 500 ML IVPB SCH (09:00)
[2023-09-07] MEDS: INSULIN 70/30 100 UNITS/ML SQ SCH (09:00)
[2023-09-07] MEDS: VANCOMYCIN 1.75 GM in NA CHLORIDE 0.9% 500 ML IVPB SCH (09:00)
[2023-09-07] MEDS: INSULIN REGULAR (HUMAN) 100 UNIT/ML SQ SCH ×3 (09:00→16:22)
[2023-09-07] MEDS: CEFEPIME 2 GM in NA CHLORIDE 0.9% 100 ML IV SCH (09:00)
[2023-09-07] MEDS: ENOXAPARIN 40 MG/0.4 ML SQ SCH (09:00)
[2023-09-07 10:14] VITALS: BP 138/81; TEMP 97.3
--- NOTE | 2023-09-07 12:37 | P.PN ---
Subjective Date of Service: 09/07/23 Chief Complaint: left lower extremity pain and swelling Subjective: Improving (Wound appears clean and dry after wound care yesterday no new complaints.) Physical Examination - Vital Signs Temperature: 97.3 F Blood Pressure: 138/81 Pulse: 68 Respirations: 14 Pulse Ox (%): 96 - Physical Exam General: Alert, In no apparent distress, Oriented x3, Cooperative Musculoskeletal: Other (Left lower extremity wound remains clean dry and well packed no evidence of ongoing infection, dressings are appropriately applied) Assessment And Plan - Current Problems (Diagnosis) (1) Abscess Current Visit: Yes Status: Acute Plan: Patient had incision and drainage of complex multiloculated abscess. -Continue antibiotic coverage -Daily dressing changes to be as follows: Remove all dressings irrigate wound with sterile saline, apply 2% viscous lidocaine to the wound allows to sit for 10 minutes then repack wound with Kerlix damp to dry with Vashe into the deep space apply dry Kerlix over the top as well as Ricci bandage starting at the foot extending to below the knee. Elevate lower extremity recommend no weight bearing to the left lower extremity at this time. Wheelchair recommended -Patient had someone available who will perform wound care as he currently states he has no insurance during dressing changes.
--- NOTE | 2023-09-07 13:14 | CON ---
Date of Consultation: 09/04/2023 Brief History Of Present Illness: The patient is a 42-year-old male with past medical history of armin new, who presents to the ED with complaints of pain and swelling in the left lower leg. He states that he believes he slammed it in a door several weeks prior and had been having some redness on his foot and an open wound developed in that area which he had been scratching. He was seen several time s and given antibiotics including Bactrim and Keflex. However, he failed outpatient antibiotic treat ment and as such came back to the emergency room with the above-stated complaints, ultimately culmina ting in a CT scan, which showed an intramuscular abscess of the left lower extremity. He has never h ad similar episodes before in the past. Past Medical History: Only significant for diabetes. Allergies: NO KNOWN DRUG ALLERGIES. Medications: None. Social History: He does smoke. He denies alcohol. Denies recreational drug use. Review of Systems: A 10 point review of systems other than HPI, denies. Physical Examination: Vital Signs: At the time of my examination, blood pressure 132/77, pulse 71, respiratory rate 18, te mperature 97.8. General: He is awake, alert, and oriented. Psychiatric: Appropriate, conversive. HEENT: He is normocephalic. Sclerae anicteric. Mucous membranes are moist. Oropharynx clear. Neck: Supple without JVD. Chest: Normal expansion and excursion. Cardiovascular: Regular rate and rhythm. Pulmonary: Clear to auscultation bilaterally. Abdomen: Soft. Extremities: Left lower extremity [id number] has significant swelling, tenderness. No erythemat ous changes. There is an abrasion on the dorsal aspect of his left foot, but there is no cellulitis of this area. No tenderness in this area. The majority of the tenderness is confined to the left la teral lower extremity and is significantly more swollen than the contralateral side. Laboratory Exam: White blood count 11.8, hemoglobin is 14.7, hematocrit 41.8, platelet count is 315. Sodium 136, potassium 3.7, chloride 106, carbon dioxide is 27, BUN 10, creatinine 0.8, glucose was 269. Hemoglobin A1c is 10.5. His total bilirubin 0.7, AST 19, ALT 31, alkaline phosphatase is 97. His UA showed 4+ ketones, 1+ urobilinogen. He had imaging performed, which included a CT of his leg, which was officially read as complex likely multiloculated fluid collection/abscess measuring up to 16 cm predominantly within the anterior compartment and minimally extending to the deep posterior com partment of the left lower leg. Associated inflammation of surrounding soft tissues noted. Specific ally there is an elongated, encapsulated mixed density fluid collection mostly within the anterior co mpartment left lower measuring 2.3 x 2.4 x 16 cm, appearing predominantly within the extensor halluci s and digitorum longus muscle with mild extension through the syndesmosis of the flexor hallucis long us muscle, overlying superficial soft tissue swelling and skin thickening. No evidence of deep fasci al edema or soft tissue gas. Assessment And Plan: This is a 42-year-old male who comes in with signs and symptoms of a complex mu ltiloculated intramuscular abscess of the left lower extremity. 1.IV fluid hydration. 2.Antibiotic coverage. 3.I have explained the risks, benefits, and alternatives of incision and drainage of his complex lar ge multiloculated abscess, including but not limited to, bleeding, infection, nerve injury, limb para lysis, footdrop, ongoing wound care need, possible lower leg dysfunction, paralysis, need for further operation or procedures, heart attacks, blood clots, strokes, and as I said, need for further operat ions, procedures and long-term ongoing wound care, possibly. The patient displayed understanding of above stated plan, agreed to proceed as indicated. All questions were answered. INDIRA/MELBA Voice ID: [id number] Report ID: [id number]
--- NOTE | 2023-09-07 14:55 | P.DS ---
Admission Date: 09/04/23 Discharge Date: 09/07/23 Disposition: ROUTINE DISCHARGE Discharge Condition: GOOD Reason for Admission: left lower extremity pain and swelling Brief History of Present Illness: 42-year-old male presented to the ED with pain and swelling in his left lower leg that has been persistent and continued to worsen over 2 weeks period. Patient was seen in the ED 6 days prior and prescribed Keflex without any improvement. He has a non draining abrasion with surrounding redness. He returned to the ED 2 days later and was given Bactrim also without any improvement. He returned to the ED again for further evaluation. On arrival his vital signs were within normal limits. Labs were notable for WBC 11.4k, Na 128 and glucose 360. Prior lab evaluation from 5 months ago when he visited the ED, he had a glucose of 265 but was not on any diabetes medication. Imaging done in the ED, venous Doppler negative for DVT however CT of the lower extremity showed 16 cm fluid collection in the anterior compartments of the leg. He received IV fluid bolus, vancomycin and Zosyn along with pain control with morphine and Toradol and insulin in the ED and patient admitted for further management. Hospital Course: Patient admitted to the medical floor and the following medical problems addressed Left lower extremity abscess Seen by surgery Dr. Ma. Status post incision and drainage. Large incision on the left leg Deep tissue wound cultures: Methicillin sensitive Staph aureus Patient was treated with IV vancomycin and cefepime during the hospital stay and transition to oral ciprofloxacin and Bactrim on discharge. Oral antibiotics choice based on isolated staph aureus antibiotic sensitivity Percocet was used for pain control. Local wound care done with packing. Patient is uninsured. His spouse has been given wound care instructions and given lessons on how to do it. He is informed to follow-up with Dr. Ma as outpatient. Patient has been informed on nonweightbearing on the left leg as recommended by Dr. Ma. New diagnosis of diabetes mellitus Hemoglobin A1c is 10.5. Blood sugars was managed with NPH 70/30 and insulin sliding scale. Blood sugar was in the low 200s with NPH 70/30 25 units twice a day. Dose increased to 30 units twice a day on discharge for a target blood glucose less than 200. Vital Signs/Physical Exam: Temp Pulse Resp BP Pulse Ox 97.3 F 68 14 138/81 96 09/07/23 12:37 09/07/23 12:37 09/07/23 12:37 09/07/23 12:37 09/07/23 12:37 General: Alert, In no apparent distress, Oriented x3 HEENT: Mucous membr. moist/pink Neck: Supple, JVD not distended Respiratory: Clear to auscultation bilaterally, Normal air movement Cardiovascular: No edema, Regular rate/rhythm, Normal S1 S2 Gastrointestinal: Normal bowel sounds, Soft and benign, Non-distended, No tenderness Musculoskeletal: Other (Left leg wound dressed and in Ricci wrap.) Neurological: Normal strength at 5/5 x4 extr Laboratory Data at Discharge: WBC 10.20 thou/uL (4.3-10.9) 09/06/23 10:23 Hgb 14.8 g/dL (13.6-17.9) 09/06/23 10:23 Hct 41.6 % (39.6-49.0) 09/06/23 10:23 Plt Count 308 thou/uL (152-406) 09/06/23 10:23 Sodium 134 mEq/L (136-145) L 09/06/23 10:23 Potassium 3.7 mEq/L (3.5-5.1) 09/06/23 10:23 BUN 9 mg/dL (7-18) 09/06/23 10:23 Creatinine 0.85 mg/dL (0.70-1.30) 09/06/23 10:23 Glucose 227 mg/dL (74-106) H 09/06/23 10:23 Magnesium 2.2 mg/dL (1.6-2.4) 09/05/23 07:32 Total Bilirubin 0.7 mg/dL (0.2-1.0) 09/05/23 07:32 AST 19 U/L (15-37) 09/05/23 07:32 ALT 31 U/L (16-61) 09/05/23 07:32 Alkaline Phosphatase 97 U/L (45-117) 09/05/23 07:32 Triglycerides 109 mg/dL (<150) 09/05/23 07:32 Cholesterol 124 mg/dL (<200) 09/05/23 07:32 HDL Cholesterol 27 mg/dL (40-60) L 09/05/23 07:32 Cholesterol/HDL Ratio 4.59 09/05/23 07:32 Home Medications: Alcohol Antiseptic Pads [Alcohol Swabs] 1 each TP BID #1 box 09/07/23 Blood Sugar Diagnostic [Glucose Test Strip] 1 each MC BID #60 strip 09/07/23 Blood-Glucose Meter [Blood Glucose Monitoring] 1 each MC BID #1 kit 09/07/23 Ciprofloxacin HCl [Cipro 500 MG Tablet] 500 mg PO BID #28 tab 09/07/23 Insulin 70/30 NPH/Reg Human [Novolin 70/30*] 30 unit SQ BID #20 ml 09/07/23 Lancets 1 each MC BID #60 ea 09/07/23 Galax, Disposable [Needle] 1 each MC BID #1 box 09/07/23 Oxycodone HCl/Acetaminophen [Percocet 5/325 Tab*] 1 tab PO Q4H PRN #20 tab 09/07/23 Smz./Tmp. [Bactrim Ds 800 MG/160 MG] 1 tab PO BID #28 tab 09/07/23 Syrge-Ndl,Ins 0.3 ml Half Freddie [Insulin Syringe] 1 each MC BID #1 box 09/07/23 New Medications: Alcohol Antiseptic Pads [Alcohol Swabs] 1 each TP BID #1 box Smz./Tmp. [Bactrim Ds 800 MG/160 MG] 1 tab PO BID #28 tab Blood-Glucose Meter [Blood Glucose Monitoring] 1 each MC BID #1 kit Ciprofloxacin HCl [Cipro 500 MG Tablet] 500 mg PO BID #28 tab Blood Sugar Diagnostic [Glucose Test Strip] 1 each MC BID #60 strip Syrge-Ndl,Ins 0.3 ml Half Freddie [Insulin Syringe] 1 each MC BID #1 box Lancets 1 each MC BID #60 ea Galax, Disposable [Needle] 1 each MC BID #1 box Insulin 70/30 NPH/Reg Human [Novolin 70/30*] 30 unit SQ BID #20 ml Oxycodone HCl/Acetaminophen [Percocet 5/325 Tab*] 1 tab PO Q4H PRN #20 tab PRN Reason: Pain Scale 8-10 (Severe) Physician Discharge Instructions: You were admitted for large abscess in your left leg. You were evaluated by the general surgeon Dr. Ma who performed incision and drainage, pus was evacuated from your leg. Deep tissue wound culture grew bacteria called Staph aureus which is sensitive to multiple antibiotics including several oral antibiotics. You have been prescribed 2 oral antibiotics to take at home for 2-week to treat this infection. Wound care: - Remove all packings, irrigate area with sterile saline, apply topical lidocaine jelly, let sit 10 minutes, the repack wound damp to dry with Vashe on kerlix roll, then wrap with dry kerlix, RICCI, elevate - non-weight bearing to LEFT leg - wheelchair Your blood sugar readings were elevated during the hospital stay. Your hemoglobin A1c was up to 10 indicating full-blown diabetes mellitus type 2 which requires insulin therapy for aggressive blood sugar control to ensure healing. Your blood sugar was managed with insulin NPH 70/30 which has been increased to 30 units twice a day for a target blood sugar reading of less than 200. You need to check your blood sugar twice a day before you give yourself insulin. Watch for low blood sugar which can be detrimental. Do not give yourself insulin if your blood sugar falls below 60 Drink fruit juice to bring your blood sugar up, recheck your blood sugar within the hour or if you continue to experience symptoms for low blood sugar. Please go to the ER if your blood sugar remains low. Diet: Regular Activity: Non-weight bearing Followup: Cas Ma MD [ACTIVE - CAN ADMIT] - NONE,NONE [Primary Care Provider] - Time spent managing pt's care (in minutes): 36
[2023-09-07] MEDS: MORPHINE 2 MG/ML SYR IV PRN (17:28)
[2023-09-07] MEDS: LIDOCAINE HCL JELLY 2% 6 ML SYRINGE TOP SCH (17:46)
== END 2023-09-07 20:30 | disposition home or self-care (01) | DRG 558 ==
LOC: ER 03:24 → ERHOLD 06:02 → 2ND 13:40
PROVIDERS: ADMIT Internal Medicine; ATTEND Internal Medicine
PROC: 0J9P0ZZ Drainage of Left Lower Leg Subcutaneous Tissue and Fascia, Open Approach (ICD-10-PCS; principal; 2023-09-04 14:30)
DX: M60.062 Infective myositis, left lower leg (principal); E11.9 Type 2 diabetes mellitus without complications; B95.61 Methicillin susceptible Staphylococcus aureus infection as the cause of diseases classified elsewhere; Z79.4 Long term (current) use of insulin; Z95.0 Presence of cardiac pacemaker; Z87.891 Personal history of nicotine dependence; Z79.899 Other long term (current) drug therapy
CPT/HCPCS: 36415; 80048; 80053; 80061; 80202; 81003; 82947; 83036; 83735; 85025; 87070; 87075; 87077; 87186; 87205; 96374; 96375; 97116; 97161; 97530; 99284; J0692; J1170; J1650; J1815; J2001; J2250; J2270; J2405; J2704; J3010; J7030; J7040; J7050